=== PATIENT | male | born 1965 | race Caucasian/White ===

== ENCOUNTER 2017-10-04 02:52 | Emergency (ER) | payer OTHER ==
[~2017-10-04] VITALS: Ht 170.2 cm; Wt 95.0 kg
[~2017-10-04 02:52] MED LIST: ACET325T33 PO; CEPH500C PO; DOCU-159 PO; FENO160T13 PO; LACTINEX PO; LEVO750T8 PO; METO-448 PO; WARF4TAB52 PO
[2017-10-04 02:58] VITALS: Ht 170.2 cm; Wt 95.0 kg
[2017-10-04] MEDS ORDERED: morphine 2 MG INJ IV ONE (04:30)
[2017-10-04 04:44] LABS: BASOPHILS % 0.3 % (0.0-2.0); EOSINOPHILS # 0.1 10^3/ul (0.0-0.5); EOSINOPHILS % 1.4 % (0.0-7.0); HEMATOCRIT 43.4 % (42.0-52.0); LYMPHOCYTES # 2.2 10^3/ul (0.8-2.9); LYMPHOCYTES % 23.6 % (15.0-51.0); MEAN CORPUSCULAR HEMOGLOBIN 29.6 pg (29.0-33.0); MEAN CORPUSCULAR HGB CONC 34.6 g/dl (32.0-37.0); MEAN CORPUSCULAR VOLUME 85.8 fl (82.0-101.0); MONOCYTE # 0.5 10^3/ul (0.3-0.9); MONOCYTES % 5.4 % (0.0-11.0); NEUTROPHIL # 6.6 10^3/ul (1.6-7.5); PLATELET COUNT 206 10^3/UL (140-415); RED BLOOD COUNT 5.06 10^6/ul (4.70-6.10); RED CELL DISTRIBUTION WIDTH 13.2 % (11.5-14.5); WHITE BLOOD COUNT 9.5 10^3/ul (4.8-10.8)
[2017-10-04] MEDS ORDERED: morphine 10 MG INJ IV ONE (05:00)
[2017-10-04 05:02] LABS: INR 1.03; PROTIME 13.5 Sec (12.2-14.2); PT RATIO 1.1
[2017-10-04 05:03] LABS: PARTIAL THROMBOPLASTIN TIME 44.4 Sec (25.0-35.0)
[2017-10-04 05:08] LABS: ALBUMIN 4.4 g/dl (3.3-4.9); ALBUMIN/GLOBULIN RATIO 1.15; BILIRUBIN,INDIRECT 1.1 mg/dl (0-1.1); BILIRUBIN,TOTAL 1.1 mg/dl (0.2-1.3); CALCIUM 9.4 mg/dl (8.4-10.2); CREATININE 0.99 mg/dl (0.61-1.24); POTASSIUM 3.9 mmol/L (3.5-5.1); TOTAL PROTEIN 8.2 g/dl (6.1-8.1)
[2017-10-04] MEDS ORDERED: LIDOCAINE 2% JELLY 5 ML TOP SCH (05:30)
[2017-10-04] MEDS ORDERED: HYDROmorphONE 1 MG/ML SYG IV STA ×2 (06:21→13:10)
[2017-10-04] MEDS ORDERED: ONDANSETRON 4 MG INJ IV STA ×2 (06:21→13:10)
--- NOTE | 2017-10-04 06:28 | ERD ---
ER Documentation Chief Complaint Chief Complaint Rectal Bleed S/P hemorrhoids repair HPI This is a 52-year-old male who is postop day 4 after hemorrhoidectomy 2 with fistula repair. Patient is on Coumadin and Lovenox for mechanical heart valve that was stopped and restarted on Thursday, 2 days ago. The patient states that last night he started having some rectal bleeding and pain that he says is a sharp sensation and feels like it is "inside". No fever no vomiting. The patient is having bowel movements. Last bowel movement was yesterday that was loose. No abdominal pain no radiation of pain. ROS All systems reviewed and are negative except as per history of present illness. Medications Home Meds Active Scripts Lactobacillus Acidophilus* (Lactinex*) 1 Tab Chew, 1 TAB PO TID for 14 Days, TAB Prov:NOHEMI,NAnushaKULDEEPGUI Antonia 06/14/16 Cephalexin* (Cephalexin*) 500 Mg Capsule, 500 MG PO Q6 for 8 Days, #28 CAP Prov:NOHEMI,NAnushaKULDEEPGUI Antonia 06/14/16 Levofloxacin* (Levofloxacin*) 750 Mg Tablet, 750 MG PO DAILY for 8 Days, TAB Prov:NOHEMI,NAnushaKULDEEPGUI Antonia 06/14/16 Warfarin Sodium* (Warfarin Sodium*) 4 Mg Tablet, 5 MG PO DAILY for 30 Days, TAB Prov:NOHEMI,BreeKULDEEPGUI Knight 06/14/16 Acetaminophen* (Tylenol*) 325 Mg Tablet, 650 MG PO Q4H Y for pain/fever, #30 TAB OTC Prov:NOHEMIBreeKULDEEPGUI Knight 06/01/16 Metoprolol Tartrate* (Lopressor*) 25 Mg Tab, 25 MG PO BID for 30 Days, TAB 3 Refills Prov:Bree SONGKULDEEPGUI Knight 06/29/15 Reported Medications Fenofibrate, Micronized* (Fenofibrate*) 160 Mg Tablet, 160 MG PO DAILY, #90 06/10/16 Docusate Sodium* (Docusate Sodium*) 100 Mg Capsule, 100 MG PO BID, #60 CAP 06/10/16 Allergies Allergies: Coded Allergies: No Known Allergy (Unverified , 05/30/16) PMhx/Soc History of Surgery: Yes (Mitral valve replacement, appendectomy, hemorrhoidectomy) Anesthesia Reaction: No 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 ) Hx Alcohol Use: No Hx Substance Use: No Hx Tobacco Use: No Smoking Status: Never smoker FmHx Family History: No coronary disease Physical Exam Vitals Vital Signs Date Time Temp Pulse Resp B/P Pulse Ox O2 Delivery O2 Flow Rate FiO2 10/04/17 14:19 98.3 68 18 110/78 97 Room Air 10/04/17 11:00 99.0 70 18 112/72 97 Room Air 10/04/17 09:32 99.0 62 18 116/72 97 Room Air 10/04/17 04:52 98.4 72 20 144/86 99 Room Air 10/04/17 02:58 98.4 89 24 144/80 99 Physical Exam Const: Well-developed, well-nourished Head: Atraumatic, normocephalic Eyes: Normal Conjunctiva, PERRLA, EOMI, normal sclera, no nystagmus ENT: Normal External Ears, Nose and Mouth, moist mucus membranes. Neck: Full range of motion. No meningismus, no lymphadenopathy. Resp: Clear to auscultation bilaterally, no wheezing, rhonchi, rales Cardio: Regular rate and rhythm, no murmurs, positive click, S1 S2 present Abd: Soft, non tender x 4, non distended. Normal bowel sounds, no guarding or rebound, no pulsitile abdominal masses or bruits Rectal: No gross induration or signs of abscess there is coagulated blood around his surgical repair with no active bleeding, there is tenderness around the anus Skin: No petechiae or rashes, no ecchymosis , no maculopapular rash Back: No midline or flank tenderness Ext: No cyanosis, or edema, FROM x 4, normal inspection, neurovascularly intact x 4 Neur: Awake and alert, STR 5/5 x 4, sensation intact x 4, no focal findings, cerebellum intact Psych: Normal Mood and Affect Result Diagram: 10/04/17 1200 10/04/17 0435 Results 24 hrs Laboratory Tests Test 10/04/17 04:35 10/04/17 12:00 White Blood Count 9.510^3/ul Red Blood Count 5.0610^6/ul Hemoglobin 15.0g/dl 13.9g/dl Hematocrit 43.4% 39.5% Mean Corpuscular Volume 85.8fl Mean Corpuscular Hemoglobin 29.6pg Mean Corpuscular Hemoglobin Concent 34.6g/dl Red Cell Distribution Width 13.2% Platelet Count 14007^3/UL Mean Platelet Volume 11.0fl Neutrophils % 69.0% Lymphocytes % 23.6% Monocytes % 5.4% Eosinophils % 1.4% Basophils % 0.3% Nucleated Red Blood Cells % 0.0/100WBC Neutrophils # 6.610^3/ul Lymphocytes # 2.210^3/ul Monocytes # 0.510^3/ul Eosinophils # 0.110^3/ul Basophils # 0.010^3/ul Nucleated Red Blood Cells # 0.010^3/ul Prothrombin Time 13.5Sec Prothrombin Time Ratio 1.1 INR International Normalized Ratio 1.03 Activated Partial Thromboplast Time 44.4Sec Sodium Level 142mmol/L Potassium Level 3.9mmol/L Chloride Level 103mmol/L Carbon Dioxide Level 28mmol/L Anion Gap 15 Blood Urea Nitrogen 10mg/dl Creatinine 0.99mg/dl Glucose Level 103mg/dl Calcium Level 9.4mg/dl Total Bilirubin 1.1mg/dl Direct Bilirubin 0.00mg/dl Indirect Bilirubin 1.1mg/dl Aspartate Amino Transf (AST/SGOT) 30IU/L Alanine Aminotransferase (ALT/SGPT) 47IU/L Alkaline Phosphatase 68IU/L Total Protein 8.2g/dl Albumin 4.4g/dl Globulin 3.80g/dl Albumin/Globulin Ratio 1.15 Current Medications Medications (Trade) Dose Ordered Sig/Janee Route PRN Reason Start Time Stop Time Status Last Admin Dose Admin Morphine Sulfate (morphine) 2 mg ONCE ONCE IV 10/04/17 04:30 10/04/17 04:30 DC Lidocaine (Xylocaine) 1 applic BID TOP 10/04/17 09:00 Morphine Sulfate (morphine) 8 mg ONCE ONCE IV 10/04/17 05:00 10/04/17 05:01 DC 10/04/17 05:04 Lidocaine (Xylocaine 2% Jelly) 1 applic ONCE TOP 10/04/17 05:30 10/04/17 05:31 DC 10/04/17 05:30 Hydromorphone HCl (Dilaudid) 1 mg ONCE STAT IV 10/04/17 06:21 10/04/17 06:23 DC 10/04/17 06:51 Ondansetron HCl (Zofran Inj) 4 mg ONCE STAT IV 10/04/17 06:21 10/04/17 06:23 DC 10/04/17 06:51 Iohexol 150 ml 150 ml STK-MED ONCE .ROUTE 10/04/17 08:13 10/04/17 08:14 DC 10/04/17 08:30 Sodium Chloride (NS) 100 ml @ ud STK-MED ONCE .ROUTE 10/04/17 08:14 10/04/17 08:15 DC 10/04/17 08:30 Hydromorphone HCl (Dilaudid) 1 mg ONCE STAT IV 10/04/17 13:10 10/04/17 13:11 DC 10/04/17 13:25 Ondansetron HCl (Zofran Inj) 4 mg ONCE STAT IV 10/04/17 13:10 10/04/17 13:11 DC 10/04/17 13:25 Procedures/MDM PROCEDURE: ABDOMINAL - 5 VIEWS CLINICAL INDICATION: 52-year-old male with abdominal pain and recent hemorrhage surgery. TECHNIQUE: AP supine and upright views of the abdomen were obtained. The images reviewed on a PACS workstation. COMPARISON: CT ABDOMEN/PELVIS 06/10/2016; CR CHEST 06/10/2016 FINDINGS: The patient has had a prior median sternotomy. The cardiomediastinal silhouette is enlarged. There is a mitral valvular prosthesis. The lung bases are unremarkable. There is no free air beneath the hemidiaphragms. There is mild retained stool throughout the colon without an obstructive pattern. There are no abnormal calcifications overlying the urinary tracts. The osseous structures are unremarkable. IMPRESSION: 1. Status post median sternotomy. 2. Cardiomegaly with mitral valvular prosthesis. 3. Retained stool without gross bowel obstruction. .August Markham MD, Date Time Electronically viewed and signed by .August Markham MD, MD on 10/04/2017 06:51 .M/ CC: АНДРЕЙ BRYAN DO PROCEDURE: CT pelvis CLINICAL INDICATION: Status post hemorrhoidectomy. Bleeding. Postop day #4. TECHNIQUE: A CT of the pelvis was performed on a GE 64-slice CT scanner utilizing high-resolution axial imaging. Sagittal, coronal, multiplanar reformatted images were made. No oral or IV contrast was given. Soft tissue and bone algorithms were utilized. One or more the following dose reduction techniques were utilized: Automated exposure control, adjustment of the mA/ or kV according to patient's size, or use of iterative reconstruction technique. DICOM images are available for review. The CTDIvol is 15.6 mGy and the DLP is 708.0 mGy-cm. COMPARISON: CT abdomen and pelvis 06/10/2016. FINDINGS: There is evidence of mild soft tissue edema and minimal fluid and subcutaneous air in the periatrial region, particularly on the left. This presumably reflects postoperative change. The rectum and distal colon appear grossly unremarkable. Postsurgical changes from a prior appendectomy are identified. The previously seen stranding and fluid has resolved. There is no free air or free fluid within the pelvis. The sacrum and coccyx are normal in appearance. IMPRESSION: 1. Postsurgical changes are seen in the perianal region as described above. 2. There is no evidence of free fluid or free air identified within the pelvis. The visualized bowels grossly unremarkable other than postsurgical changes from a prior appendectomy. RPTAT: HJAH .Marsha Elizabeth MD, MD Date Time Electronically viewed and signed by .Marsha Elizabeth MD, on 10/04/2017 08:59 .H/ CC: LEVI NICHOLS DO Spoke with the patient's surgeon, Dr. barbour, patient had their wound packed but it bled through. At that point repeat his hemoglobin which came back at 13.9. On wound check again the patient's bleeding has stopped he only soaked through about a quarter of a pack of 4 x 4's. I discussed the case again with the patient's surgeon. The patient will be discharged home and is instructed to lay on his side and will follow up with the surgeon tomorrow. Warning signs to return were given. The patient was observed in the ER for 10 hours Departure Diagnosis: Primary Impression: Post-op bleeding Surgical complication system/body Area: circulatory system Procedure type: circulatory, unspecified Qualified Code: I97.618 - Postoperative hemorrhage involving circulatory system following circulatory system procedure Condition: Stable LEVI NICHOLS DO Oct 04, 2017 06:28
--- NOTE | 2017-10-04 06:51 | RADRPT ---
PROCEDURE: ABDOMINAL - 5 VIEWS CLINICAL INDICATION: 52-year-old male with abdominal pain and recent hemorrhage surgery. TECHNIQUE: AP supine and upright views of the abdomen were obtained. The images reviewed on a [employer] workstation. COMPARISON: CT ABDOMEN/PELVIS 06/10/2016; CR CHEST 06/10/2016 FINDINGS: The patient has had a prior median sternotomy. The cardiomediastinal silhouette is enlarged. There i s a mitral valvular prosthesis. The lung bases are unremarkable. There is no free air beneath the h emidiaphragms. There is mild retained stool throughout the colon without an obstructive pattern. The re are no abnormal calcifications overlying the urinary tracts. The osseous structures are unremarka ble. IMPRESSION: 1. Status post median sternotomy. 2. Cardiomegaly with mitral valvular prosthesis. 3. Retained stool without gross bowel obstruction. .August Markham MD, Date Time Electronically viewed and signed by .August Markham MD, on 10/04/2017 06:51 .Momo/
[2017-10-04] MEDS ORDERED: IOHEXOL 300MG/ML 150 ML BTL ONE (08:13)
[2017-10-04] MEDS ORDERED: SOD CHLORIDE 0.9% 100 ML ONE (08:14)
--- NOTE | 2017-10-04 08:59 | RADRPT ---
PROCEDURE: CT pelvis CLINICAL INDICATION: Status post hemorrhoidectomy. Bleeding. Postop day #4. TECHNIQUE: A CT of the pelvis was performed on a GE 64-slice CT scanner utilizing high-resolution axial imaging. Sagittal, coronal, multiplanar reformatted images were made. No oral or IV contrast was given. Soft tissue and bone algorithms were utilized. One or more the following dose reduction techniques were utilized: Automated exposure control, adjustment of the mA/ or kV according to chang ent's size, or use of iterative reconstruction technique. DICOM images are available for review. The CTDIvol is 15.6 mGy and the DLP is 708.0 mGy-cm. COMPARISON: CT abdomen and pelvis 06/10/2016. FINDINGS: There is evidence of mild soft tissue edema and minimal fluid and subcutaneous air in the periatrial region, particularly on the left. This presumably reflects postoperative change. The rectum and dis arcadio colon appear grossly unremarkable. Postsurgical changes from a prior appendectomy are identified . The previously seen stranding and fluid has resolved. There is no free air or free fluid within th e pelvis. The sacrum and coccyx are normal in appearance. IMPRESSION: 1. Postsurgical changes are seen in the perianal region as described above. 2. There is no evidence of free fluid or free air identified within the pelvis. The visualized jael ls grossly unremarkable other than postsurgical changes from a prior appendectomy. RPTAT: HJAH .Marsha Elizabeth MD, Date Time Electronically viewed and signed by .Marsha Elizabeth MD, on 10/04/2017 08:59 .H/
[2017-10-04] MEDS ORDERED: LIDOCAINE 2% JELLY 30 ML TOP SCH (09:00)
[2017-10-04 12:55] LABS: HEMATOCRIT 39.5 % (42.0-52.0); HEMOGLOBIN 13.9 g/dl (14.0-18.0)
[2017-10-04 14:55] VITALS: BP 112/68; PULSE 68; RESP 18; TEMP 97.9
== END 2017-10-04 15:12 | disposition home or self-care (01) ==
LOC: FTE 02:52 → E/R 15:12
DX: I97.618 Postprocedural hemorrhage of a circulatory system organ or structure following other circulatory system procedure (principal); Z79.01 Long term (current) use of anticoagulants
CPT/HCPCS: 36415; 72193; 74010; 80053; 85014; 85018; 85025; 85610; 85730; 86850; 86900; 86901; 96374; 96375; 96376; 99285; J1170; J2270; J2405; Q9967

== ENCOUNTER 2017-10-11 06:54 | Inpatient (IN) | payer OTHER ==
[~2017-10-11] VITALS: Ht 172.7 cm; Wt 98.0 kg
[2017-10-11 06:56] VITALS: Ht 172.7 cm; Wt 98.0 kg
[2017-10-11] MEDS ORDERED: ONDANSETRON 4 MG INJ IV STA (07:25)
[2017-10-11] MEDS ORDERED: morphine 4 MG/ML VIAL IV STA (07:25)
[2017-10-11 07:48] LABS: BASOPHILS % 0.4 % (0.0-2.0); EOSINOPHILS # 0.2 10^3/ul (0.0-0.5); EOSINOPHILS % 1.9 % (0.0-7.0); HEMATOCRIT 36.9 % (42.0-52.0); HEMOGLOBIN 12.8 g/dl (14.0-18.0); LYMPHOCYTES # 2.8 10^3/ul (0.8-2.9); LYMPHOCYTES % 36.1 % (15.0-51.0); MEAN CORPUSCULAR HGB CONC 34.7 g/dl (32.0-37.0); MEAN CORPUSCULAR VOLUME 86.4 fl (82.0-101.0); MEAN PLATELET VOLUME 10.8 fl (7.4-10.4); MONOCYTE # 0.4 10^3/ul (0.3-0.9); MONOCYTES % 5.7 % (0.0-11.0); NEUTROPHIL # 4.3 10^3/ul (1.6-7.5); NEUTROPHILS % 55.4 % (39.0-77.0); PLATELET COUNT 251 10^3/UL (140-415); RED BLOOD COUNT 4.27 10^6/ul (4.70-6.10); RED CELL DISTRIBUTION WIDTH 13.3 % (11.5-14.5); WHITE BLOOD COUNT 7.8 10^3/ul (4.8-10.8)
--- NOTE | 2017-10-11 07:49 | RADRPT ---
PROCEDURE: CHEST - 1 VIEW CLINICAL INDICATION: 52-year-old male with chest/abdominal pain. TECHNIQUE: A single frontal AP semi-supine portably view of the chest was performed. The images w ere reviewed on a PACS workstation. COMPARISON: CR CHEST 06/10/2016; CR CHEST 05/30/2016; CR CHEST 06/27/2015 FINDINGS: The patient has had a prior median sternotomy. There is a shallow inspiration accentuating the heart size. Accounting for this, the cardiomediastinal silhouette is prominent but without significant in terval change. A mitral valvular prosthesis is again noted. There is minimal bibasilar subsegmental atelectasis. There is no evidence for an infiltrate. There is no evidence for congestive heart sharona lure. There is no evidence for pneumothorax. IMPRESSION: 1. Status post median sternotomy. 2. Mitral valvular prosthesis. 3. Shallow inspiration. 4. Minimal bibasilar subsegmental atelectasis. .August Markham MD, MD Date Time Electronically viewed and signed by .August Markham MD, on 10/11/2017 07:49 .M/
[2017-10-11] MEDS ORDERED: PHYTONADIONE 10 MG/ML INJ SC ONE (08:00)
[2017-10-11 08:16] LABS: INR 2.33; PROTIME 25.8 Sec (12.2-14.2)
[2017-10-11 08:17] LABS: PARTIAL THROMBOPLASTIN TIME 51.7 Sec (25.0-35.0)
[2017-10-11 08:18] LABS: ALANINE AMINOTRANSFERASE 46 IU/L (13-69); ALBUMIN 3.7 g/dl (3.3-4.9); ALBUMIN/GLOBULIN RATIO 1.12; ALKALINE PHOSPHATASE 55 IU/L (42-121); ANION GAP 12 (8-16); ASPARTATE AMINO TRANSFERASE 23 IU/L (15-46); BILIRUBIN,INDIRECT 0.5 mg/dl (0-1.1); BILIRUBIN,TOTAL 0.5 mg/dl (0.2-1.3); BLOOD UREA NITROGEN 14 mg/dl (7-20); CARBON DIOXIDE 27 mmol/L (21-31); CHLORIDE 107 mmol/L (97-110); CREATININE 0.96 mg/dl (0.61-1.24); GLUCOSE 105 mg/dl (70-220); POTASSIUM 4.2 mmol/L (3.5-5.1); SODIUM 142 mmol/L (135-144)
[2017-10-11] MEDS ORDERED: ONDANSETRON 4 MG INJ IV PRN (08:30)
[2017-10-11] MEDS ORDERED: ACETAMINOPHEN 325 MG TAB PO PRN (08:30)
[2017-10-11 08:38] LABS: TROPONIN-I < 0.012 ng/ml (0.00-0.12)
--- NOTE | 2017-10-11 09:51 | ERD ---
ER Documentation Chief Complaint Chief Complaint rectal pain and bleeing - had a hemorrhoidectomy on Sep 30 HPI Patient is a 52-year-old male who has a mechanical heart valve who presents for rectal bleeding. The patient had a hemorrhoidectomy done on September 30. He started bleeding this morning at 2 AM from his rectum right with the surgery was done and he says "it was a lot of blood". He also has pain at the site. He is on Lovenox and Coumadin because of his mechanical valve. The surgeon who did the hemorrhoidectomy was Dr. Nielsen. ROS All systems reviewed and are negative except as per history of present illness. Medications Home Meds Active Scripts Lactobacillus Acidophilus* (Lactinex*) 1 Tab Chew, 1 TAB PO TID for 14 Days, TAB Prov:NOHEMITylerAnushaKULDEEPGUI 06/14/16 Cephalexin* (Cephalexin*) 500 Mg Capsule, 500 MG PO Q6 for 8 Days, #28 CAP Prov:NOHEMI,NAnushaKULDEEPGUI Knight 06/14/16 Levofloxacin* (Levofloxacin*) 750 Mg Tablet, 750 MG PO DAILY for 8 Days, TAB Prov:NOHEMI,NAnushaKULDEEPGUI 06/14/16 Warfarin Sodium* (Warfarin Sodium*) 4 Mg Tablet, 5 MG PO DAILY for 30 Days, TAB Prov:NOHEMI,BreeKULDEEPGUI 06/14/16 Acetaminophen* (Tylenol*) 325 Mg Tablet, 650 MG PO Q4H Y for pain/fever, #30 TAB OTC Prov:NOHEMI,BreeKULDEEPGUI Knight 06/01/16 Metoprolol Tartrate* (Lopressor*) 25 Mg Tab, 25 MG PO BID for 30 Days, TAB 3 Refills Prov:Bree SONGKULDEEPGUI Knight 06/29/15 Reported Medications Fenofibrate, Micronized* (Fenofibrate*) 160 Mg Tablet, 160 MG PO DAILY, #90 06/10/16 Docusate Sodium* (Docusate Sodium*) 100 Mg Capsule, 100 MG PO BID, #60 CAP 06/10/16 Allergies Allergies: Coded Allergies: No Known Allergy (Unverified , 05/30/16) PMhx/Soc Medical and Surgical Hx: pt denies Medical Hx, pt denies Surgical Hx History of Surgery: Yes (Mitral valve replacement, appendectomy, hemorrhoidectomy) Anesthesia Reaction: No 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 ) Hx Alcohol Use: No Hx Substance Use: No Hx Tobacco Use: No FmHx Family History: No diabetes Physical Exam Vitals Vital Signs Date Time Temp Pulse Resp B/P Pulse Ox O2 Delivery O2 Flow Rate FiO2 10/11/17 06:56 99.9 64 19 127/79 100 Physical Exam Const: Moderate distress Head: Atraumatic Eyes: Normal Conjunctiva ENT: Normal External Ears, Nose and Mouth. Neck: Full range of motion..~ No meningismus. Resp: Clear to auscultation bilaterally Cardio: Regular rate and rhythm, no murmurs Abd: Soft, non tender, non distended. Normal bowel sounds Skin: No petechiae or rashes Back: No midline or flank tenderness Ext: No cyanosis, or edema Neur: Awake and alert Rectal: Patient has active bleeding currently at the hemorrhoidectomy site, there is no sign of arterial bleed at this time Result Diagram: 10/11/17 0729 10/11/17 0729 Results 24 hrs Laboratory Tests Test 10/11/17 07:29 White Blood Count 7.810^3/ul Red Blood Count 4.2710^6/ul Hemoglobin 12.8g/dl Hematocrit 36.9% Mean Corpuscular Volume 86.4fl Mean Corpuscular Hemoglobin 30.0pg Mean Corpuscular Hemoglobin Concent 34.7g/dl Red Cell Distribution Width 13.3% Platelet Count 56892^3/UL Mean Platelet Volume 10.8fl Neutrophils % 55.4% Lymphocytes % 36.1% Monocytes % 5.7% Eosinophils % 1.9% Basophils % 0.4% Nucleated Red Blood Cells % 0.0/100WBC Neutrophils # 4.310^3/ul Lymphocytes # 2.810^3/ul Monocytes # 0.410^3/ul Eosinophils # 0.210^3/ul Basophils # 0.010^3/ul Nucleated Red Blood Cells # 0.010^3/ul Prothrombin Time 25.8Sec Prothrombin Time Ratio 2.0 INR International Normalized Ratio 2.33 Activated Partial Thromboplast Time 51.7Sec Sodium Level 142mmol/L Potassium Level 4.2mmol/L Chloride Level 107mmol/L Carbon Dioxide Level 27mmol/L Anion Gap 12 Blood Urea Nitrogen 14mg/dl Creatinine 0.96mg/dl Glucose Level 105mg/dl Calcium Level 9.0mg/dl Total Bilirubin 0.5mg/dl Direct Bilirubin 0.00mg/dl Indirect Bilirubin 0.5mg/dl Aspartate Amino Transf (AST/SGOT) 23IU/L Alanine Aminotransferase (ALT/SGPT) 46IU/L Alkaline Phosphatase 55IU/L Troponin I < 0.012ng/ml Total Protein 7.0g/dl Albumin 3.7g/dl Globulin 3.30g/dl Albumin/Globulin Ratio 1.12 Lipase 82U/L Current Medications Medications (Trade) Dose Ordered Sig/Janee Route PRN Reason Start Time Stop Time Status Last Admin Dose Admin Morphine Sulfate (morphine) 4 mg ONCE STAT IV 10/11/17 07:25 10/11/17 07:26 DC 10/11/17 07:35 Ondansetron HCl (Zofran Inj) 4 mg ONCE STAT IV 10/11/17 07:25 10/11/17 07:26 DC 10/11/17 07:35 Phytonadione (Vitamin K) 10 mg ONCE ONCE SC 10/11/17 08:00 10/11/17 08:01 DC 10/11/17 08:34 Ondansetron HCl (Zofran Inj) 4 mg BRIDGE ORDER PRN IV NAUSEA AND/OR VOMITING 10/11/17 08:30 10/12/17 08:29 Acetaminophen (Tylenol Tab) 650 mg ER BRIDGE PRN PO MILD PAIN/FEVER 10/11/17 08:30 10/12/17 08:29 Procedures/MDM PROCEDURE: CHEST - 1 VIEW CLINICAL INDICATION: 52-year-old male with chest/abdominal pain. TECHNIQUE: A single frontal AP semi-supine portably view of the chest was performed. The images were reviewed on a PACS workstation. COMPARISON: CR CHEST 06/10/2016; CR CHEST 05/30/2016; CR CHEST 06/27/2015 FINDINGS: The patient has had a prior median sternotomy. There is a shallow inspiration accentuating the heart size. Accounting for this, the cardiomediastinal silhouette is prominent but without significant interval change. A mitral valvular prosthesis is again noted. There is minimal bibasilar subsegmental atelectasis. There is no evidence for an infiltrate. There is no evidence for congestive heart failure. There is no evidence for pneumothorax. IMPRESSION: 1. Status post median sternotomy. 2. Mitral valvular prosthesis. 3. Shallow inspiration. 4. Minimal bibasilar subsegmental atelectasis. .August Markham MD, Date Time Electronically viewed and signed by .August Markham MD, on 10/11/2017 07:49 EKG read by me: Rate/Rhythm: Regular rate and rhythm at a rate of 86 Intervals: Prolonged QT interval Impression: Sinus rhythm with a prolonged QTC Patient is a 52-year-old male who presents with rectal bleeding from a hemorrhoidectomy site. I am concerned because the patient is on both Lovenox and Coumadin given his mechanical heart valve. Weighing the risks and benefits I believe that we need to stop this bleeding so Surgicel was applied to the site and the patient was ordered vitamin K and 4 units of fresh frozen plasma. I spoke with Dr. Jacob Sandra the surgeon on-call who will see the patient in consultation. The surgeon who performed the procedure does not have [facility] here at the hospital but I did speak to him to inform him that his patient was going to be admitted and with the treatment course would be. I spoke with Dr. Rodriguez who is the [facility] hospitalist for admission to a medical [facility]. Hemoglobin is currently 12.8 showing anemia but does not require transfusion at this time. However the patient will likely need hemoglobin recheck. Critical Care: Time: 35 minutes excluding all billable procedures. Treatments/Evaluations: Close monitoring and treatment of unstable vital signs, cardiorespiratory, and neurologic status, while maintaining tight balance of fluid, respiratory, and cardiac interventions. Departure Diagnosis: Primary Impression: Coagulopathy Additional Impression: Rectal hemorrhage Condition: MITESH Castillo MD Oct 11, 2017 09:51
[2017-10-11] MEDS ORDERED: WARF6TAB35 PO (10:06)
[2017-10-11] MEDS ORDERED: ENOX100D2 SC (10:07)
[2017-10-11 10:43] VITALS: TEMP 98.3
[2017-10-11 10:53] VITALS: BMI 33.5
--- NOTE | 2017-10-11 11:44 | HP ---
Date/Time of Note Date/Time of Note DATE: 10/11/17 TIME: 11:35 Assessment/Plan VTE Prophylaxis VTE Prophylaxis Intervention: SCD's Lines/Catheters IV [facility] Saline Lock Urinary Cath still in place: No Assessment/Plan Assessment/Plan [facility] 52yo man who is s/p mitral valve replacement on Coumadin. His said that she gives him Lovenox SQ if his INR falls below 2.0, and that it was most recently 2.7. Very healthy apart from the hemorrhoids that were operated two weeks ago. * Hold Coumadin and Lovenox for now * Surgery consult with Dr. Spencer Sandra * Consult with Dr. Jean-Paul Bell (cardiology) * NPO for possible surgical intervention today * D5-1/2NS at 100cc/hr * Full-code * SCDs for DVT prophylaxis * Famotidine for GI protection * Disposition home when bleeding is adequately controlled * Cardiology follow-up Courtney Rodriguez MD PhD [phone] HPI/ROS Admit Date/Time Admit Date/Time Oct 11, 2017 at 08:03 Hx of Present Illness Mr. Drew is a 52-year-old patient of Dr. Pasha Weiss with a history of a mechanical mitral valve who presented this morning for rectal bleeding two weeks (09/30/17) after hemorrhoidectomy at the [facility] by Dr. Dinesh Nielsen. I spoke with him and his in [place] in [facility] Rm 2256 this morning. He developed substantial rectal bleeding this morning about 2: 00am. He said it was only painful when examined. He takes Lovenox and Coumadin because of the mechanical valve, and is followed for cardiology by Dr. Durán. Dr. Nielsen was contacted by the ER staff this morning and indicated that he does not have privileges at [facility]. ROS No dyspnea, chest discomfort, dizziness, loose stooling or constipation. PMH/Family/Social Past Surgical History Past Surgical Hx: appendectomy, other (Mitral valve replacement) Social History He is and works in construction. Exam/Review of Systems Vital Signs Vitals Vital Signs Date Time Temp Pulse Resp B/P Pulse Ox O2 Delivery O2 Flow Rate FiO2 10/11/17 10:43 98.3 86 20 136/74 98 Room Air Exam Constitutional: alert, oriented, well developed Psych: anxiety, nl mood/affect, no complaints Head: atraumatic, normocephalic Eyes: EOMI, PERRL, nl conjunctiva ENMT: mucosa pink and moist Neck: non-tender, supple, No jvd, No masses, No nuchal rigidity, No thyromegaly Respiratory: clear to auscultation, normal air movement, No congested cough, No crackles/rales, No diminished breath sounds, No intercostal retraction, No labored breathing, No respirations, No wheezing Cardiovascular: murmurs/extra sounds, nl pulses, regular rate and rhythm, No bruits, No diastolic murmur, No edema, No gallop, No irregular rhythm, No jugular venous distention (JVD), No rub Gastrointestinal: bowel sounds, nl liver, spleen, non-tender, soft, surgical scars, No ascites, No distended, No firm, No hepatomegaly, No mass, No rebound or guarding, No splenomegaly, No tender Musculoskeletal: muscle tone, nl extremities to inspection, range of motion, No joint tenderness, No muscle weakness, No spine non-tender, No swelling Extremities: normal pulses Neurological: SURGICAL GARMENT INSPECTOR II-XII intact, nl mental status, nl speech, nl strength Skin: nl turgor, No diaphoresis, No ecchymosis, No laceration, No puncture, No rash or lesions Lymph: nl lymph nodes Labs Result Diagram: 10/11/17 0729 10/11/17 0729 TERESO RODRIGUEZ M.D. Oct 11, 2017 11:44
[2017-10-11 11:46] VITALS: BP 105/64; PULSE 51; RESP 18
[2017-10-11] MEDS ORDERED: ONDANSETRON 4 MG TAB PO PRN (12:00)
[2017-10-11] MEDS ORDERED: DOCUSATE SODIUM 100 MG CAP PO PRN (12:00)
[2017-10-11] MEDS ORDERED: NACL 0.9% 3 ML SYG IV SCH (12:00)
--- NOTE | 2017-10-11 13:41 | CONS ---
Date/Time of Note Date/Time of Note DATE: 10/11/17 TIME: 13:34 Assessment/Plan Assessment/Plan Chief Complaint/Hosp Course 1. hx mechanical mitral valve replacement 2. rectal bleeding 3/. History of hemorrhoids 4. Status post recent hemorrhoidectomy 5. Mild anemia Recommendations: We will check echocardiogram to evaluate for mitral valve. Lovenox and Coumadin are on hold until bleeding stops. Surgical evaluation is pending to evaluate for the hemorrhoid bleeding. I recommend avoidance of FFP however due to the patient's mechanical mitral valve to avoid thrombosis of the valve and possible CVAs and other complications. Follow-up with daily INR Dr. Durán or his associate will follow up tomorrow. THANK YOU MITCH MONROE MD [facility] Problems: Consultation Date/Type/Reason Admit Date/Time Oct 11, 2017 at 08:03 Date of Consultation: Oct 11, 2017 Type of Consultation: cardiology Reason for Consultation s/p MVR Referring Provider: TERESO SLOAN M.D. Hx of Present Illness CARDIOLOGY CONSULT (covering for Dr Durán) CC: RECTAL BLEEDING HPI: You for his referral. History of present from the patient with history of the old chart from discussion with his at discussion with . 52-year-old gentleman with history of mechanical mitral valve replacement in 2011 who has undergone hemorrhoid surgery a couple of weeks ago. Patient Coumadin and Lovenox was restarted. He has had repeated rectal bleeding. Patient states that he was seen here earlier and since of bleeding so he was discharged. However patient came back because of increasing rectal bleeding. According to the who was packing is that the bleeding was "significant" Patient is in chest pain the patient denies any palpitation. Allergies: No known drug allergies Past medical history history of mitral valve disorder status post mechanical mitral valve replacement in 2011. History of hemorrhoid as above-mentioned. Family history: No reported early coronary artery disease Medication was reviewed ROS as above only Psychological: anxiety, nl mood/affect, no complaints Past Surgical History Past Surgical Hx: appendectomy, other (Mitral valve replacement) Social History Smoking Status: Never smoker Exam/Review of Systems Vital Signs Vitals Vital Signs Date Time Temp Pulse Resp B/P Pulse Ox O2 Delivery O2 Flow Rate FiO2 10/11/17 11:46 98.3 51 18 105/64 98 Room Air Exam General: no acute distress HEENT: NC/AT. pupils are equal. round. NECK: NO JVD. no stridor. CV: RRR. systolic murmur; no gallop or rubs. PULM: no wheezing or rhonchi. GI: SOFT, NT, ND, no rebound or guarding Extremity: trace B/L LE edema. no clubbing. neuro: awake and alert, OX3. Psych: calm and pleasant rectal: deferred ECG sinus pradeep nonspecific T wave abn Results Result Diagram: 10/11/17 0729 10/11/17 0729 Results 24 hrs Laboratory Tests Test 10/11/17 07:29 White Blood Count 7.8 Red Blood Count 4.27 L Hemoglobin 12.8 L Hematocrit 36.9 L Mean Corpuscular Volume 86.4 Mean Corpuscular Hemoglobin 30.0 Mean Corpuscular Hemoglobin Concent 34.7 Red Cell Distribution Width 13.3 Platelet Count 251 # Mean Platelet Volume 10.8 H Neutrophils % 55.4 Lymphocytes % 36.1 Monocytes % 5.7 Eosinophils % 1.9 Basophils % 0.4 Nucleated Red Blood Cells % 0.0 Neutrophils # 4.3 Lymphocytes # 2.8 Monocytes # 0.4 Eosinophils # 0.2 Basophils # 0.0 Nucleated Red Blood Cells # 0.0 Prothrombin Time 25.8 #H Prothrombin Time Ratio 2.0 INR International Normalized Ratio 2.33 Activated Partial Thromboplast Time 51.7 H Sodium Level 142 Potassium Level 4.2 Chloride Level 107 Carbon Dioxide Level 27 Anion Gap 12 Blood Urea Nitrogen 14 Creatinine 0.96 Glucose Level 105 Calcium Level 9.0 Total Bilirubin 0.5 Direct Bilirubin 0.00 Indirect Bilirubin 0.5 Aspartate Amino Transf (AST/SGOT) 23 Alanine Aminotransferase (ALT/SGPT) 46 Alkaline Phosphatase 55 Troponin I < 0.012 Total Protein 7.0 Albumin 3.7 Globulin 3.30 H Albumin/Globulin Ratio 1.12 Lipase 82 Medications Medications Current Medications Dextrose/Sodium Chloride (D5-1/2ns) 1,000 ml @ 100 mls/hr Q10H IV ; Start at 11:57 Ondansetron HCl (Zofran Tab) 4 mg Q6H PRN PO NAUSEA AND/OR VOMITING; Start at 12:00 Docusate Sodium (Colace) 100 mg Q12H PRN PO CONSTIPATION; Start 11/19/17 at 12 :00 Famotidine (Pepcid) 20 mg Q12 PO ; Start 10/11/17 at 12:00 MITCH MONROE MD Oct 11, 2017 13:41
[2017-10-11 14:00] VITALS: BP 110/64; RESP 19
[2017-10-11] MEDS: FAMOTIDINE 20 MG TAB PO SCH ×2 (14:20→20:33)
[2017-10-11] MEDS: DEXTROSE 5%-0.45% NACL 1,000 ML IV SCH (14:21)
--- NOTE | 2017-10-11 19:03 | CONS ---
Date/Time of Note Date/Time of Note DATE: 10/11/17 TIME: 19:03 Consultation Date/Type/Reason Admit Date/Time Oct 11, 2017 at 08:03 Date of Consultation: Oct 11, 2017 Type of Consultation: General surgical Reason for Consultation Rectal bleeding with recent by Dr. Nielsen Anemia Antiplatelet therapy for mechanical mitral valve Referring Provider: MITESH ENGLE MD Hx of Present Illness Mr. Kev Drew is 52yo male with history of mechanical mitral valve replacement in 2011 and antiplatelet therapy who has undergone hemorrhoid surgery a couple of weeks ago by Dr Nielsen. Patient Coumadin and Lovenox was restarted. He has had repeated rectal bleeding. Patient states that he was seen here earlier and since of bleeding so he was discharged. However patient came back because of increasing rectal bleeding. According to the who was packing is that the bleeding was "significant" Patient is in chest pain the patient denies any palpitation. Allergies: No known drug allergies Past medical history history of mitral valve disorder status post mechanical mitral valve replacement in 2011. History of hemorrhoid as above-mentioned. Family history: No reported early coronary artery disease Medication was reviewed ROS as above only Psychological: anxiety, nl mood/affect, no complaints Past Surgical History Past Surgical Hx: appendectomy, other (Mitral valve replacement) Psychological: anxiety, nl mood/affect, no complaints Past Surgical History Past Surgical Hx: appendectomy, other (Mitral valve replacement) Social History Smoking Status: Never smoker Exam/Review of Systems Vital Signs Vitals Vital Signs Date Time Temp Pulse Resp B/P Pulse Ox O2 Delivery O2 Flow Rate FiO2 10/11/17 11:46 98.3 51 18 105/64 98 Room Air Results Result Diagram: 10/11/17 0729 10/11/17 0729 Results 24 hrs Laboratory Tests Test 10/11/17 07:29 White Blood Count 7.8 Red Blood Count 4.27 L Hemoglobin 12.8 L Hematocrit 36.9 L Mean Corpuscular Volume 86.4 Mean Corpuscular Hemoglobin 30.0 Mean Corpuscular Hemoglobin Concent 34.7 Red Cell Distribution Width 13.3 Platelet Count 251 # Mean Platelet Volume 10.8 H Neutrophils % 55.4 Lymphocytes % 36.1 Monocytes % 5.7 Eosinophils % 1.9 Basophils % 0.4 Nucleated Red Blood Cells % 0.0 Neutrophils # 4.3 Lymphocytes # 2.8 Monocytes # 0.4 Eosinophils # 0.2 Basophils # 0.0 Nucleated Red Blood Cells # 0.0 Prothrombin Time 25.8 #H Prothrombin Time Ratio 2.0 INR International Normalized Ratio 2.33 Activated Partial Thromboplast Time 51.7 H Sodium Level 142 Potassium Level 4.2 Chloride Level 107 Carbon Dioxide Level 27 Anion Gap 12 Blood Urea Nitrogen 14 Creatinine 0.96 Glucose Level 105 Calcium Level 9.0 Total Bilirubin 0.5 Direct Bilirubin 0.00 Indirect Bilirubin 0.5 Aspartate Amino Transf (AST/SGOT) 23 Alanine Aminotransferase (ALT/SGPT) 46 Alkaline Phosphatase 55 Troponin I < 0.012 Total Protein 7.0 Albumin 3.7 Globulin 3.30 H Albumin/Globulin Ratio 1.12 Lipase 82 Medications Medications Current Medications Dextrose/Sodium Chloride (D5-1/2ns) 1,000 ml @ 100 mls/hr Q10H IV Last administered on 10/11/17 14:21; Admin Dose 100 MLS/HR; Start 10/11/17 at 11: 57 Ondansetron HCl (Zofran Tab) 4 mg Q6H PRN PO NAUSEA AND/OR VOMITING; Start at 12:00 Docusate Sodium (Colace) 100 mg Q12H PRN PO CONSTIPATION; Start 10/11/17 at 12 :00 Famotidine (Pepcid) 20 mg Q12 PO Last administered on 10/11/17 14:20; Admin Dose 20 MG; Start 10/11/17 at 12:00 MONTY IRVIN MD Oct 11, 2017 19:03
[2017-10-11 20:32] VITALS: BP 108/67; RESP 18
[2017-10-12 02:19] VITALS: BP 109/68; RESP 20
[2017-10-12] MEDS: DEXTROSE 5%-0.45% NACL 1,000 ML IV SCH ×4 (02:47→22:54)
[2017-10-12 05:54] LABS: BASOPHILS % 0.6 % (0.0-2.0); EOSINOPHILS # 0.2 10^3/ul (0.0-0.5); EOSINOPHILS % 4.4 % (0.0-7.0); HEMATOCRIT 33.9 % (42.0-52.0); HEMOGLOBIN 11.6 g/dl (14.0-18.0); LYMPHOCYTES # 2.1 10^3/ul (0.8-2.9); LYMPHOCYTES % 42.2 % (15.0-51.0); MEAN CORPUSCULAR HEMOGLOBIN 30.1 pg (29.0-33.0); MEAN CORPUSCULAR HGB CONC 34.2 g/dl (32.0-37.0); MEAN CORPUSCULAR VOLUME 88.1 fl (82.0-101.0); MEAN PLATELET VOLUME 10.7 fl (7.4-10.4); MONOCYTE # 0.4 10^3/ul (0.3-0.9); NEUTROPHIL # 2.3 10^3/ul (1.6-7.5); NEUTROPHILS % 45.4 % (39.0-77.0); PLATELET COUNT 233 10^3/UL (140-415); RED BLOOD COUNT 3.85 10^6/ul (4.70-6.10); RED CELL DISTRIBUTION WIDTH 13.6 % (11.5-14.5)
[2017-10-12 06:14] LABS: INR 1.84; PROTIME 21.4 Sec (12.2-14.2); PT RATIO 1.7
[2017-10-12 06:47] LABS: CALCIUM 8.9 mg/dl (8.4-10.2); CREATININE 0.98 mg/dl (0.61-1.24); POTASSIUM 3.9 mmol/L (3.5-5.1)
[2017-10-12 07:20] VITALS: BP 111/65; RESP 16
[2017-10-12] MEDS: FAMOTIDINE 20 MG TAB PO SCH ×2 (08:49→20:38)
--- NOTE | 2017-10-12 13:32 | PN ---
Date/Time of Note Date/Time of Note DATE: 10/12/17 TIME: 13:31 Assessment/Plan VTE Prophylaxis VTE Prophylaxis Intervention: SCD's Lines/Catheters IV Catheter Type (from [facility]): Peripheral IV Urinary Cath still in place: No Assessment/Plan Assessment/Plan 1. hx mechanical mitral valve replacement 2. rectal bleeding 3/. History of hemorrhoids 4. Status post recent hemorrhoidectomy 5. Mild anemia Recommendation Lovenox and Coumadin are on hold until bleeding stops. Surgical evaluation is pending to evaluate for the hemorrhoid bleeding - seen by dr albright I recommend avoidance of FFP however due to the patient's mechanical mitral valve to avoid thrombosis of the valve and possible CVAs and other complications. hct slightly lower today Exam/Review of Systems Vital Signs Vitals Vital Signs Date Time Temp Pulse Resp B/P Pulse Ox O2 Delivery O2 Flow Rate FiO2 10/12/17 07:20 97.8 52 16 111/65 97 10/11/17 11:46 Room Air Intake and Output 10/11/17 10/11/17 10/12/17 15:00 23:00 07:00 Intake Total 300 ml 1050 ml Output Total 1250 ml Balance 300 ml -200 ml Results Result Diagram: 10/12/17 0458 10/12/17 0458 Results 24 hrs Laboratory Tests Test 10/12/17 04:58 White Blood Count 5.0 # Red Blood Count 3.85 L Hemoglobin 11.6 L Hematocrit 33.9 L Mean Corpuscular Volume 88.1 Mean Corpuscular Hemoglobin 30.1 Mean Corpuscular Hemoglobin Concent 34.2 Red Cell Distribution Width 13.6 Platelet Count 233 Mean Platelet Volume 10.7 H Neutrophils % 45.4 Lymphocytes % 42.2 Monocytes % 7.0 Eosinophils % 4.4 Basophils % 0.6 Nucleated Red Blood Cells % 0.0 Neutrophils # 2.3 Lymphocytes # 2.1 Monocytes # 0.4 Eosinophils # 0.2 Basophils # 0.0 Nucleated Red Blood Cells # 0.0 Prothrombin Time 21.4 H Prothrombin Time Ratio 1.7 INR International Normalized Ratio 1.84 Sodium Level 142 Potassium Level 3.9 Chloride Level 107 Carbon Dioxide Level 27 Anion Gap 12 Blood Urea Nitrogen 13 Creatinine 0.98 Glucose Level 105 Calcium Level 8.9 Medications Medications Current Medications Dextrose/Sodium Chloride (D5-1/2ns) 1,000 ml @ 100 mls/hr Q10H IV Last administered on 10/12/17 12:16; Admin Dose 100 MLS/HR; Start 10/11/17 at 11: 57 Ondansetron HCl (Zofran Tab) 4 mg Q6H PRN PO NAUSEA AND/OR VOMITING; Start at 12:00 Docusate Sodium (Colace) 100 mg Q12H PRN PO CONSTIPATION; Start 10/11/17 at 12 :00 Famotidine (Pepcid) 20 mg Q12 PO Last administered on 10/12/17 08:49; Admin Dose 20 MG; Start 10/11/17 at 12:00 SHADIA BRUMFIELD MD Oct 12, 2017 13:32
[2017-10-12 14:03] VITALS: BP 129/70; RESP 16
--- NOTE | 2017-10-12 14:55 | RADRPT ---
Echocardiogram Report Patient Name: SILVANO RUTHERFORD Gender: Male Date: 1965 Study Date: 12-Oct-2017 Rug Hooker Hand: Sergio Cooper [facility] Location: 2256-A Ref. Physician: MITCH BELL Quality: Adequate Procedures: Transthoracic echocardiogram with complete 2D, M-Mode, and doppler examination. Indications: S/P MVR. 2D/M Mode Doppler Measurement Value Normal Ranges Measurement Value Normal Ranges LVIDd 2D 5.2 3.5 - 5.6 cm AV Peak Sumit 1.5 m/sec LVIDs 2D 3.3 2.1 - 4.1 cm AV Peak PG 9.0 mmHg FS 2D 35.6 % LVOT Peak Sumit 1.0 m/sec LVPWd 2D 1.3 0.6 - 1.1 cm LVOT Peak PG 4.0 mmHg IVSd 2D 1.3 0.6 - 1.1 cm MV PHT 150.0 msec IVS/LVPW 2D 1.0 MV Peak Sumit 1.5 m/sec AoR Diam 2D 3.0 2.0 - 3.7 cm MV Peak PG 9.0 mmHg LA/Ao 2D 1 0 - 1 MV Mean Sumit 0.9 m/sec EDV 2D 138.0 cm3 MV Mean PG 4.0 mmHg ESV 2D 36.9 cm3 MV Decel [place] 3 LA Dimen 2D 4.3 2.3 - 4.0 cm MV PHT Peak Sumit 1.4 m/sec MV PHT 150.0 msec MV VTI 62.8 cm MVA PHT 1.5 cm2 TR Peak Sumit 2.7 m/sec TR Peak PG 29.0 mmHg RVSP 39.0 mmHg Findings Left Ventricle: Normal left ventricular systolic function. Normal left ventricular cavity size. Mild concentric left ventricular hypertrophy. Ejection fraction is visually estimated at 55 %. Right Ventricle: Normal right ventricular size. Normal right ventricular systolic function. Left Atrium: There is mild enlargement of left atrium. Right Atrium: The right atrium is normal in size. Mitral Valve: Trace mitral regurgitation. Mitral Valve Mechanical Prosthesis. Mitral valve Max Velocity 1.51 m/sec. MaxPG 9.00 mmHg. MeanPG 4.00 mmHg. Mitral Valve Area by PHT1.47 cm2. Aortic Valve: Normal appearance of the aortic valve. No significant aortic stenosis or insufficiency. Tricuspid Valve: Normal appearance of the tricuspid valve. Estimated peak PA systolic pressure 39 mmHg. There is mild tricuspid regurgitation. Pulmonic Valve: Pulmonic valve not well visualized. There is trace pulmonic regurgitation. Pericardium: Normal pericardium with no significant pericardial effusion. Aorta: Normal aortic root. IVC: Normal size and normal respiratory collapse consistent with normal right atrial pressure. Conclusions 1.Normal left ventricular systolic function. Normal left ventricular cavity size. Mild concentric left ventricular hypertrophy. Ejection fraction is visually estimated at 55 %. 2.There is mild enlargement of left atrium. 3.Trace mitral regurgitation. Mitral Valve Mechanical Prosthesis. Mitral valve Max Velocity 1.51 m/sec. MaxPG 9.00 mmHg. MeanPG 4.00 mmHg. Mitral Valve Area by PHT1.47 cm2. 4.Normal appearance of the aortic valve. No significant aortic stenosis or insufficiency. 5.Normal appearance of the tricuspid valve. Estimated peak PA systolic pressure 39 mmHg. There is mild tricuspid regurgitation. Electronically Signed By: Mitch Bell 12-Oct-2017 14:54:40 -0800 Patient Name: SILVANO RUTHERFORD Study Date: 12-Oct-2017 [id number]
--- NOTE | 2017-10-12 16:17 | PN ---
Date/Time of Note Date/Time of Note DATE: 10/12/17 TIME: 16:07 Assessment/Plan VTE Prophylaxis VTE Prophylaxis Intervention: SCD's Lines/Catheters IV Catheter Type (from [facility]): Peripheral IV Urinary Cath still in place: No Assessment/Plan Assessment/Plan 52 yo man with: 1. Rectal bleeding, status post and ano-rectal surgery 2 weeks ago, patient actually had a fistulotomy (he has had recurrent and rectal fistula with abscesses) and removal of 2 large external hemorrhoids on both sides of the fistula with the wounds left open to make sure that the fistula drains according to the he had a fistula and he required surgery, apparently there was an opening that was left for drainage of the pus according to the , unsure if he actually had a hemorrhoidectomy. Will attempt to get records from outpatient surgical center. Hemoglobin remains stable He is off anticoagulation currently for short-term. 2. Mechanical Mitral valve, patient was on Lovenox and Coumadin given his subtherapeutic INR. Ideally his INR should be between 2.5 and 3.5, apparently he received FFP. The patient cannot remain non-anticoagulated for too long. Appreciate recommendations from cardiology, awaiting surgical recommendations regarding resumption of his anticoagulation at least with Lovenox No FFP please Prophylaxis: SCDs for DVT prophylaxis and Pepcid for GI prophylaxis Disposition: Follow-up surgical recommendation, again attempting to get records from surgical center in [place]. Subjective 24 Hr Interval Summary Free Text/Dictation Patient doing well currently, apparently did have episode of rectal bleeding this morning however the patient reports that he has not had any bowel movements. Hemoglobin is stable, surgical evaluation pending. Appreciate recommendations from cardiology. Exam/Review of Systems Vital Signs Vitals Vital Signs Date Time Temp Pulse Resp B/P Pulse Ox O2 Delivery O2 Flow Rate FiO2 10/12/17 14:03 97.2 67 16 129/70 97 10/11/17 11:46 Room Air Intake and Output 10/11/17 10/11/17 10/12/17 15:00 23:00 07:00 Intake Total 300 ml 1050 ml Output Total 1250 ml Balance 300 ml -200 ml Exam Constitutional: alert, oriented, well developed Respiratory: clear to auscultation, normal air movement Cardiovascular: nl pulses, regular rate and rhythm Gastrointestinal: non-tender, soft Musculoskeletal: nl extremities to inspection, nl gait and stance Extremities: normal pulses Neurological: HARDWOOD FLOORING SPECIALIST II-XII intact, nl mental status, nl speech, nl strength Results Result Diagram: 10/12/178 10/12/178 Results 24 hrs Laboratory Tests Test 10/12/17 04:58 White Blood Count 5.0 # Red Blood Count 3.85 L Hemoglobin 11.6 L Hematocrit 33.9 L Mean Corpuscular Volume 88.1 Mean Corpuscular Hemoglobin 30.1 Mean Corpuscular Hemoglobin Concent 34.2 Red Cell Distribution Width 13.6 Platelet Count 233 Mean Platelet Volume 10.7 H Neutrophils % 45.4 Lymphocytes % 42.2 Monocytes % 7.0 Eosinophils % 4.4 Basophils % 0.6 Nucleated Red Blood Cells % 0.0 Neutrophils # 2.3 Lymphocytes # 2.1 Monocytes # 0.4 Eosinophils # 0.2 Basophils # 0.0 Nucleated Red Blood Cells # 0.0 Prothrombin Time 21.4 H Prothrombin Time Ratio 1.7 INR International Normalized Ratio 1.84 Sodium Level 142 Potassium Level 3.9 Chloride Level 107 Carbon Dioxide Level 27 Anion Gap 12 Blood Urea Nitrogen 13 Creatinine 0.98 Glucose Level 105 Calcium Level 8.9 Medications Medications Current Medications Dextrose/Sodium Chloride (D5-1/2ns) 1,000 ml @ 100 mls/hr Q10H IV Last administered on 10/12/17 12:16; Admin Dose 100 MLS/HR; Start 10/11/17 at 11: 57 Ondansetron HCl (Zofran Tab) 4 mg Q6H PRN PO NAUSEA AND/OR VOMITING; Start at 12:00 Docusate Sodium (Colace) 100 mg Q12H PRN PO CONSTIPATION; Start 10/11/17 at 12 :00 Famotidine (Pepcid) 20 mg Q12 PO Last administered on 10/12/17 08:49; Admin Dose 20 MG; Start 10/11/17 at 12:00 MIKKI SONG Oct 12, 2017 16:17
[2017-10-12] MEDS ORDERED: ACETAMINOPHEN 325 MG TAB PO PRN (16:30)
[2017-10-12 20:30] VITALS: BP 109/63; RESP 18
[2017-10-13 02:00] VITALS: BP 103/64; RESP 17
[2017-10-13 06:46] LABS: BASOPHILS % 0.4 % (0.0-2.0); EOSINOPHILS # 0.2 10^3/ul (0.0-0.5); EOSINOPHILS % 4.1 % (0.0-7.0); HEMATOCRIT 32.5 % (42.0-52.0); HEMOGLOBIN 11.3 g/dl (14.0-18.0); LYMPHOCYTES # 2.5 10^3/ul (0.8-2.9); LYMPHOCYTES % 46.1 % (15.0-51.0); MEAN CORPUSCULAR HEMOGLOBIN 30.1 pg (29.0-33.0); MEAN CORPUSCULAR HGB CONC 34.8 g/dl (32.0-37.0); MEAN CORPUSCULAR VOLUME 86.7 fl (82.0-101.0); MEAN PLATELET VOLUME 10.7 fl (7.4-10.4); MONOCYTE # 0.4 10^3/ul (0.3-0.9); MONOCYTES % 8.3 % (0.0-11.0); NEUTROPHIL # 2.2 10^3/ul (1.6-7.5); NEUTROPHILS % 40.7 % (39.0-77.0); PLATELET COUNT 239 10^3/UL (140-415); RED BLOOD COUNT 3.75 10^6/ul (4.70-6.10); RED CELL DISTRIBUTION WIDTH 13.2 % (11.5-14.5); WHITE BLOOD COUNT 5.3 10^3/ul (4.8-10.8)
[2017-10-13 07:20] LABS: INR 1.27; PT RATIO 1.3
[2017-10-13 07:21] LABS: PARTIAL THROMBOPLASTIN TIME 35.7 Sec (25.0-35.0)
[2017-10-13 07:30] LABS: ALBUMIN 3.5 g/dl (3.3-4.9); ALBUMIN/GLOBULIN RATIO 1.25; BILIRUBIN,INDIRECT 0.7 mg/dl (0-1.1); BILIRUBIN,TOTAL 0.7 mg/dl (0.2-1.3); CALCIUM 8.5 mg/dl (8.4-10.2); CREATININE 1.01 mg/dl (0.61-1.24); POTASSIUM 3.8 mmol/L (3.5-5.1); TOTAL PROTEIN 6.3 g/dl (6.1-8.1)
[2017-10-13 07:31] LABS: MAGNESIUM 2.1 mg/dl (1.7-2.5); PHOSPHORUS 4.3 mg/dl (2.5-4.9)
[2017-10-13 08:00] VITALS: BP 104/56; PULSE 67; RESP 18
[2017-10-13] MEDS: FAMOTIDINE 20 MG TAB PO SCH ×2 (10:12→20:22)
--- NOTE | 2017-10-13 10:25 | PN ---
Date/Time of Note Date/Time of Note DATE: 10/13/17 TIME: 10:25 Assessment/Plan VTE Prophylaxis VTE Prophylaxis Intervention: SCD's Lines/Catheters IV [facility]ter Type (from [facility]): Peripheral IV Urinary Cath still in place: No Assessment/Plan Assessment/Plan 52 yo man with: 1. Rectal bleeding, status post and ano-rectal surgery 2 weeks ago, patient actually had a fistulotomy (he has had recurrent and rectal fistula with abscesses) and removal of 2 large external hemorrhoids on both sides of the fistula with the wounds left open to make sure that the fistula drains per Dr Hinton. Hemoglobin remains stable this morning and no episodes of major bleeding. He is off anticoagulation currently for short-term. INR is down to 1.2 today. Will discuss with cardiology, however per Dr. Hinton can it would be ideal to have the patient off anticoagulation 2 more days prior to resuming it because he feels like by then the patient would have been +14 days postsurgery and healed enough that even with full anticoagulation resumed he should not have any severe bleeding 2. Mechanical Mitral valve, patient was on Lovenox and Coumadin given his subtherapeutic INR. Ideally his INR should be between 2.5 and 3.5, apparently he received FFP on admission. The patient cannot remain non-anticoagulated for too long but outpatient surgeon , Dr Hinton is asking for 2 more days of anticoagulation if possible to allow for healing therefore resumption of full dose anticoagulation by 10/16. Follow-up inpatient surgical recommendations form Dr Sandra. Follow-up recommendations from cardiology. No FFP please Prophylaxis: SCDs for DVT prophylaxis and Pepcid for GI prophylaxis Disposition: Follow-up further inpatient surgical and cardiology recommendation. Subjective 24 Hr Interval Summary Free Text/Dictation Patient doing well this morning, he denies any large bloody bowel movements, only trace blood, hemoglobin is stable. I did talk to Dr. Dinesh Hinton this morning, he did explain the procedure he had done with this patient which includes fistulotomy and hemorrhoidectomy at this point no plan for surgical intervention per Dr. Sandra, patient remains off anticoagulation. Exam/Review of Systems Vital Signs Vitals Vital Signs Date Time Temp Pulse Resp B/P Pulse Ox O2 Delivery O2 Flow Rate FiO2 10/13/17 08:00 98.2 67 18 104/56 99 Room Air Intake and Output 10/12/17 10/12/17 10/13/17 14:59 22:59 06:59 Intake Total 700 ml 1000 ml 800 ml Output Total 1100 ml Balance 700 ml -100 ml 800 ml Exam Constitutional: alert, oriented, well developed Respiratory: clear to auscultation, normal air movement Cardiovascular: murmurs/extra sounds (Mechanical click), nl pulses, regular rate and rhythm Gastrointestinal: non-tender, soft Musculoskeletal: nl extremities to inspection Extremities: normal pulses Neurological: COMPUTER SUPPORT TECHNICIAN II-XII intact, nl mental status, nl speech, nl strength Results Result Diagram: 10/13/1760110/13/17601 Results 24 hrs Laboratory Tests Test 10/13/17 06:02 White Blood Count 5.3 Red Blood Count 3.75 L Hemoglobin 11.3 L Hematocrit 32.5 L Mean Corpuscular Volume 86.7 Mean Corpuscular Hemoglobin 30.1 Mean Corpuscular Hemoglobin Concent 34.8 Red Cell Distribution Width 13.2 Platelet Count 239 Mean Platelet Volume 10.7 H Neutrophils % 40.7 Lymphocytes % 46.1 Monocytes % 8.3 Eosinophils % 4.1 Basophils % 0.4 Nucleated Red Blood Cells % 0.0 Neutrophils # 2.2 Lymphocytes # 2.5 Monocytes # 0.4 Eosinophils # 0.2 Basophils # 0.0 Nucleated Red Blood Cells # 0.0 Prothrombin Time 16.0 #H Prothrombin Time Ratio 1.3 INR International Normalized Ratio 1.27 Activated Partial Thromboplast Time 35.7 H Sodium Level 141 Potassium Level 3.8 Chloride Level 107 Carbon Dioxide Level 26 Anion Gap 12 Blood Urea Nitrogen 12 Creatinine 1.01 Glucose Level 99 Calcium Level 8.5 Phosphorus Level 4.3 Magnesium Level 2.1 Total Bilirubin 0.7 Direct Bilirubin 0.00 Indirect Bilirubin 0.7 Aspartate Amino Transf (AST/SGOT) 23 Alanine Aminotransferase (ALT/SGPT) 40 Alkaline Phosphatase 51 Total Protein 6.3 Albumin 3.5 Globulin 2.80 Albumin/Globulin Ratio 1.25 Medications Medications Current Medications Dextrose/Sodium Chloride (D5-1/2ns) 1,000 ml @ 100 mls/hr Q10H IV Last administered on 10/12/17t 22:54; Admin Dose 100 MLS/HR; Start 10/11/17 at 11: 57 Ondansetron HCl (Zofran Tab) 4 mg Q6H PRN PO NAUSEA AND/OR VOMITING; Start at 12:00 Docusate Sodium (Colace) 100 mg Q12H PRN PO CONSTIPATION; Start 10/11/17 at 12 :00 Famotidine (Pepcid) 20 mg Q12 PO Last administered on 10/13/17t 10:12; Admin Dose 20 MG; Start 10/11/17 at 12:00 Acetaminophen (Tylenol Tab) 650 mg Q6H PRN PO PAIN AND OR ELEVATED TEMP; Start 10/12/17 at 16:30 MIKKI SONG Oct 13, 2017 10:25
--- NOTE | 2017-10-13 15:59 | CONS ---
Date/Time of Note Date/Time of Note DATE: 10/13/17 TIME: 15:55 Assessment/Plan Assessment/Plan Additional Assessment/Plan BRBPR Hx Mechanical MVR Preserved EF -Discussed with surgeon over the phone. Plan to start Coumadin today, if rectal bleeding continues to improve, plan to start IV heparin tomorrow with plan of therapeutic PTT but on the lower end. Consultation Date/Type/Reason Admit Date/Time Oct 11, 2017 at 13:55 Initial Consult Date 10/11/17 Type of Consultation: cv Referring Provider: MITESH ENGLE MD 24 HR Interval Summary Free Text/Dictation denies sob, palpitations, dizziness. Some BRB on tissue when wiping but improved Exam/Review of Systems Vital Signs Vitals Vital Signs Date Time Temp Pulse Resp B/P Pulse Ox O2 Delivery O2 Flow Rate FiO2 10/13/17 08:00 98.2 67 18 104/56 99 Room Air Intake and Output 10/12/17 10/12/17 10/13/17 15:00 23:00 07:00 Intake Total 700 ml 1000 ml 800 ml Output Total 1100 ml Balance 700 ml -100 ml 800 ml Exam Constitutional: alert, oriented, well developed Neck: supple Respiratory: other (course bs, no wheeze) Cardiovascular: other (mechanical click), regular rate and rhythm Gastrointestinal: bowel sounds, non-tender, soft Extremities: other (no edema) Results Result Diagram: 10/13/17 0602 10/13/17 0602 Results 24 hrs Laboratory Tests Test 10/13/17 06:02 White Blood Count 5.3 Red Blood Count 3.75 L Hemoglobin 11.3 L Hematocrit 32.5 L Mean Corpuscular Volume 86.7 Mean Corpuscular Hemoglobin 30.1 Mean Corpuscular Hemoglobin Concent 34.8 Red Cell Distribution Width 13.2 Platelet Count 239 Mean Platelet Volume 10.7 H Neutrophils % 40.7 Lymphocytes % 46.1 Monocytes % 8.3 Eosinophils % 4.1 Basophils % 0.4 Nucleated Red Blood Cells % 0.0 Neutrophils # 2.2 Lymphocytes # 2.5 Monocytes # 0.4 Eosinophils # 0.2 Basophils # 0.0 Nucleated Red Blood Cells # 0.0 Prothrombin Time 16.0 #H Prothrombin Time Ratio 1.3 INR International Normalized Ratio 1.27 Activated Partial Thromboplast Time 35.7 H Sodium Level 141 Potassium Level 3.8 Chloride Level 107 Carbon Dioxide Level 26 Anion Gap 12 Blood Urea Nitrogen 12 Creatinine 1.01 Glucose Level 99 Calcium Level 8.5 Phosphorus Level 4.3 Magnesium Level 2.1 Total Bilirubin 0.7 Direct Bilirubin 0.00 Indirect Bilirubin 0.7 Aspartate Amino Transf (AST/SGOT) 23 Alanine Aminotransferase (ALT/SGPT) 40 Alkaline Phosphatase 51 Total Protein 6.3 Albumin 3.5 Globulin 2.80 Albumin/Globulin Ratio 1.25 Medications Medications Current Medications Ondansetron HCl (Zofran Tab) 4 mg Q6H PRN PO NAUSEA AND/OR VOMITING; Start at 12:00 Docusate Sodium (Colace) 100 mg Q12H PRN PO CONSTIPATION; Start 10/11/17 at 12 :00 Famotidine (Pepcid) 20 mg Q12 PO Last administered on 10/13/17t 10:12; Admin Dose 20 MG; Start 10/11/17 at 12:00 Acetaminophen (Tylenol Tab) 650 mg Q6H PRN PO PAIN AND OR ELEVATED TEMP; Start 10/12/17 at 16:30 Ken Bui DO Oct 13, 2017 15:59
--- NOTE | 2017-10-13 16:47 | PN ---
Date/Time of Note Date/Time of Note DATE: 10/13/17 TIME: 16:34 Assessment/Plan Lines/Catheters IV Catheter Type (from [facility]): Peripheral IV Cor[facility] in Place (from [facility]): No Assessment/Plan Chief Complaint/Hosp Course 1. Rectal bleed: s/p fistulotomy (known rectal fistula) and hemorrhoidectomy: no overt bleed -continue to monitor -no emergent surgical intervention necessary at this time -may follow with primary surgeon 2. Rectal fistula: -continue local care -as above 3. Mechanical mitral valve: -anticoagulate when acute bleed has stopped- per primary surgeon may be resumed by 10/16 4. Normocytic normochromic anemia: -monitor -transfuse as needed 5. Obesity: bmi 34 -diet and exercise optimization -encourage weight loss Thank you. Patient seen and examined in collaboration with Dr. Jacob Sandra. Problems: Subjective 24 Hr Interval Summary Feels well. Reports improved bleeding. Slight bleeding noted from nicole-rectal fistula. No fevers, chills, sob, congested cough, cp, palpitations, hodge, dizziness, n/v/d/dysuria. Exam/Review of Systems Vital Signs Vitals Vital Signs Date Time Temp Pulse Resp B/P Pulse Ox O2 Delivery O2 Flow Rate FiO2 10/13/17 08:00 98.2 67 18 104/56 99 Room Air Intake and Output 10/12/17 10/12/17 10/13/17 15:00 23:00 07:00 Intake Total 700 ml 1000 ml 800 ml Output Total 1100 ml Balance 700 ml -100 ml 800 ml Exam Constitutional: alert, oriented, well developed Psych: nl mood/affect, no complaints Head: atraumatic, normocephalic Eyes: nl lids, nl sclera ENMT: mucosa pink and moist, nl nasal mucosa & septum Neck: non-tender, supple Respiratory: clear to auscultation Cardiovascular: nl pulses, regular rate and rhythm Gastrointestinal: non-tender, other (rotund), soft Musculoskeletal: nl extremities to inspection, nl gait and stance Extremities: normal pulses Neurological: nl mental status, nl speech, nl strength Skin: nl turgor, other (rectal fistula min drainage, min blood) Lymph: nl lymph nodes Results Result Diagram: 10/13/1702 10/13/1702 CLARISA PERSON NP Oct 13, 2017 16:47
[2017-10-13] MEDS ORDERED: WARFARIN 7.5 MG TAB PO ONE (17:30)
[2017-10-13 20:16] VITALS: BP 104/71; RESP 18
[2017-10-14 02:18] VITALS: BP 109/66; RESP 18
[2017-10-14 05:52] LABS: BASOPHILS % 0.7 % (0.0-2.0); EOSINOPHILS # 0.3 10^3/ul (0.0-0.5); EOSINOPHILS % 4.5 % (0.0-7.0); HEMATOCRIT 33.4 % (42.0-52.0); HEMOGLOBIN 11.5 g/dl (14.0-18.0); LYMPHOCYTES # 2.6 10^3/ul (0.8-2.9); LYMPHOCYTES % 42.7 % (15.0-51.0); MEAN CORPUSCULAR HEMOGLOBIN 29.9 pg (29.0-33.0); MEAN CORPUSCULAR HGB CONC 34.4 g/dl (32.0-37.0); MEAN PLATELET VOLUME 10.8 fl (7.4-10.4); MONOCYTE # 0.4 10^3/ul (0.3-0.9); NEUTROPHIL # 2.7 10^3/ul (1.6-7.5); NEUTROPHILS % 44.6 % (39.0-77.0); PLATELET COUNT 261 10^3/UL (140-415); RED BLOOD COUNT 3.84 10^6/ul (4.70-6.10); RED CELL DISTRIBUTION WIDTH 13.2 % (11.5-14.5)
[2017-10-14 06:08] LABS: INR 1.15; PROTIME 14.7 Sec (12.2-14.2); PT RATIO 1.1
[2017-10-14 06:09] LABS: PARTIAL THROMBOPLASTIN TIME 35.2 Sec (25.0-35.0)
[2017-10-14 06:20] LABS: PHOSPHORUS 4.3 mg/dl (2.5-4.9)
[2017-10-14 06:21] LABS: CALCIUM 8.9 mg/dl (8.4-10.2); CREATININE 1.02 mg/dl (0.61-1.24)
[2017-10-14 08:23] VITALS: BP 100/60; RESP 18
[2017-10-14] MEDS: FAMOTIDINE 20 MG TAB PO SCH ×2 (08:50→22:35)
--- NOTE | 2017-10-14 10:02 | CONS ---
Date/Time of Note Date/Time of Note DATE: 10/14/17 TIME: 10:00 Assessment/Plan Assessment/Plan Additional Assessment/Plan BRBPR with history of recent rectal surgery Hx Mechanical MVR Preserved ejection fraction -As mentioned in previous note, I did speak to patient's primary surgeon regarding patient with mechanical mitral valve. Given patient with no further bleeding, Coumadin was restarted yesterday and will plan of starting IV heparin today with goal of "lower end" of the therapeutic range. Consultation Date/Type/Reason Admit Date/Time Oct 11, 2017 at 13:55 Initial Consult Date 10/11/17 Type of Consultation: cv Referring Provider: MITESH ENGLE MD 24 HR Interval Summary Free Text/Dictation Patient denies any rectal bleeding or blood seen on tissue with wiping. Exam/Review of Systems Vital Signs Vitals Vital Signs Date Time Temp Pulse Resp B/P Pulse Ox O2 Delivery O2 Flow Rate FiO2 10/14/17 08:23 98.8 51 18 100/60 96 10/13/17 08:00 Room Air Intake and Output 10/13/17 10/13/17 10/14/17 15:00 23:00 07:00 Intake Total 400 ml 1380 ml 450 ml Output Total 1475 ml Balance 400 ml -95 ml 450 ml Exam No apparent distress Constitutional: alert, oriented Head: normocephalic Respiratory: clear to auscultation, normal air movement Cardiovascular: other (Mechanical click), regular rate and rhythm Gastrointestinal: bowel sounds, non-tender, soft Extremities: other (No edema) Results Result Diagram: 10/14/17 0519 10/14/17 0519 Results 24 hrs Laboratory Tests Test 10/14/17 05:19 White Blood Count 6.0 Red Blood Count 3.84 L Hemoglobin 11.5 L Hematocrit 33.4 L Mean Corpuscular Volume 87.0 Mean Corpuscular Hemoglobin 29.9 Mean Corpuscular Hemoglobin Concent 34.4 Red Cell Distribution Width 13.2 Platelet Count 261 Mean Platelet Volume 10.8 H Neutrophils % 44.6 Lymphocytes % 42.7 Monocytes % 7.0 Eosinophils % 4.5 Basophils % 0.7 Nucleated Red Blood Cells % 0.0 Neutrophils # 2.7 Lymphocytes # 2.6 Monocytes # 0.4 Eosinophils # 0.3 Basophils # 0.0 Nucleated Red Blood Cells # 0.0 Prothrombin Time 14.7 H Prothrombin Time Ratio 1.1 INR International Normalized Ratio 1.15 Activated Partial Thromboplast Time 35.2 H Sodium Level 142 Potassium Level 4.0 Chloride Level 108 Carbon Dioxide Level 24 Anion Gap 14 Blood Urea Nitrogen 16 Creatinine 1.02 Glucose Level 91 Calcium Level 8.9 Phosphorus Level 4.3 Magnesium Level 2.0 Medications Medications Current Medications Ondansetron HCl (Zofran Tab) 4 mg Q6H PRN PO NAUSEA AND/OR VOMITING; Start at 12:00 Docusate Sodium (Colace) 100 mg Q12H PRN PO CONSTIPATION; Start 10/11/17 at 12 :00 Famotidine (Pepcid) 20 mg Q12 PO Last administered on 10/14/17t 08:50; Admin Dose 20 MG; Start 10/11/17 at 12:00 Acetaminophen (Tylenol Tab) 650 mg Q6H PRN PO PAIN AND OR ELEVATED TEMP; Start 10/12/17 at 16:30 Warfarin Sodium (Coumadin) 6 mg DAILY@17 PO ; Start 10/14/17 at 17:00 Ken Bui DO Oct 14, 2017 10:02
[2017-10-14] MEDS ORDERED: HEPARIN 1000 UNITS/ML 10 ML INJ IV PRN (10:30)
--- NOTE | 2017-10-14 10:51 | PN ---
Date/Time of Note Date/Time of Note DATE: 10/14/17 TIME: 10:48 Assessment/Plan Lines/Catheters IV Catheter Type (from [facility]): Peripheral IV Corcoran in Place (from [facility]): No Assessment/Plan Chief Complaint/Hosp Course 1. Rectal bleed: s/p fistulotomy (known rectal fistula) and hemorrhoidectomy: no overt bleed -continue to monitor -no emergent surgical intervention necessary at this time -may follow with primary surgeon 2. Rectal fistula: -continue local care -as above 3. Mechanical mitral valve: -anticoagulate when acute bleed has stopped- per primary surgeon may be resumed by 10/16 4. Normocytic normochromic anemia: -monitor -transfuse as needed 5. Obesity: bmi 34 -diet and exercise optimization -encourage weight loss Thank you. Patient seen and examined in collaboration with Dr. Jacob Sandra. Problems: Subjective 24 Hr Interval Summary Feels well. No acute bleed noted. No rectal pain. h/h stable. No fevers, chills , sob, congested cough, cp, palpitations, hodge, dizziness, n/v/d/dysuria. Exam/Review of Systems Vital Signs Vitals Vital Signs Date Time Temp Pulse Resp B/P Pulse Ox O2 Delivery O2 Flow Rate FiO2 10/14/17 08:23 98.8 51 18 100/60 96 10/13/17 08:00 Room Air Intake and Output 10/13/17 10/13/17 10/14/17 15:00 23:00 07:00 Intake Total 400 ml 1380 ml 450 ml Output Total 1475 ml Balance 400 ml -95 ml 450 ml Exam Free Text/Dictation Constitutional: alert, oriented, well developed Psych: nl mood/affect, no complaints Head: atraumatic, normocephalic Eyes: nl lids, nl sclera ENMT: mucosa pink and moist, nl nasal mucosa & septum Neck: non-tender, supple Respiratory: clear to auscultation Cardiovascular: nl pulses, regular rate and rhythm Gastrointestinal: non-tender, other (rotund), soft Musculoskeletal: nl extremities to inspection, nl gait and stance Extremities: normal pulses Neurological: nl mental status, nl speech, nl strength Skin: nl turgor, other (rectal fistula min drainage, no acute bleed) Lymph: nl lymph nodes Results Result Diagram: 10/14/17 0519 10/14/17 0519 CLARISA PERSON NP Oct 14, 2017 10:51
[2017-10-14] MEDS: HEPARIN 25000 UNITS/250 ML 250 ML IV SCH ×2 (13:12→19:09)
--- NOTE | 2017-10-14 13:42 | PN ---
Date/Time of Note Date/Time of Note DATE: 10/14/17 TIME: 13:31 Assessment/Plan VTE Prophylaxis VTE Prophylaxis Intervention: SCD's Lines/Catheters IV Catheter Type (from [facility]): Peripheral IV Urinary Cath still in place: No Assessment/Plan Assessment/Plan 52 yo man with: 1. Rectal bleeding, status post and ano-rectal surgery 2 weeks ago, patient actually had a fistulotomy (he has had recurrent and rectal fistula with abscesses) and removal of 2 large external hemorrhoids on both sides of the fistula with the wounds left open to make sure that the fistula drains per Dr Hinton. Hemoglobin remains stable this morning and no episodes of major bleeding. Patient has resumed Coumadin yesterday and On heparin drip bridge as of today per Cardiology. Appreciate recommendations from Cardiology and General Surgery. 2. Mechanical Mitral valve, Ideally his INR should be between 2.5 and 3.5, Back on Coumadin and using Heparin gtt for bridging until INR therapeutic Appreciate assistance from cardiology. No FFP please Prophylaxis: SCDs for DVT prophylaxis and Pepcid for GI prophylaxis Disposition: Follow-up further inpatient surgical and cardiology recommendation tomorrow . Subjective 24 Hr Interval Summary Free Text/Dictation Patient doing well On Heparin gtt as of this AM Coumadin started yesterday. Exam/Review of Systems Vital Signs Vitals Vital Signs Date Time Temp Pulse Resp B/P Pulse Ox O2 Delivery O2 Flow Rate FiO2 10/14/17 08:23 98.8 51 18 100/60 96 10/13/17 08:00 Room Air Intake and Output 10/13/17 10/13/17 10/14/17 15:00 23:00 07:00 Intake Total 400 ml 1380 ml 450 ml Output Total 1475 ml Balance 400 ml -95 ml 450 ml Exam Constitutional: alert, oriented, well developed Respiratory: clear to auscultation, normal air movement Cardiovascular: nl pulses, regular rate and rhythm Gastrointestinal: non-tender, soft Musculoskeletal: nl extremities to inspection Extremities: normal pulses, other (no edema, clubbing or cyanosis ) Neurological: CARBON PAPER INTERLEAFER II-XII intact, nl mental status, nl speech, nl strength Results Result Diagram: 10/14/1719 10/14/17 0519 Results 24 hrs Laboratory Tests Test 10/14/17 05:19 White Blood Count 6.0 Red Blood Count 3.84 L Hemoglobin 11.5 L Hematocrit 33.4 L Mean Corpuscular Volume 87.0 Mean Corpuscular Hemoglobin 29.9 Mean Corpuscular Hemoglobin Concent 34.4 Red Cell Distribution Width 13.2 Platelet Count 261 Mean Platelet Volume 10.8 H Neutrophils % 44.6 Lymphocytes % 42.7 Monocytes % 7.0 Eosinophils % 4.5 Basophils % 0.7 Nucleated Red Blood Cells % 0.0 Neutrophils # 2.7 Lymphocytes # 2.6 Monocytes # 0.4 Eosinophils # 0.3 Basophils # 0.0 Nucleated Red Blood Cells # 0.0 Prothrombin Time 14.7 H Prothrombin Time Ratio 1.1 INR International Normalized Ratio 1.15 Activated Partial Thromboplast Time 35.2 H Sodium Level 142 Potassium Level 4.0 Chloride Level 108 Carbon Dioxide Level 24 Anion Gap 14 Blood Urea Nitrogen 16 Creatinine 1.02 Glucose Level 91 Calcium Level 8.9 Phosphorus Level 4.3 Magnesium Level 2.0 Medications Medications Current Medications Ondansetron HCl (Zofran Tab) 4 mg Q6H PRN PO NAUSEA AND/OR VOMITING; Start at 12:00 Docusate Sodium (Colace) 100 mg Q12H PRN PO CONSTIPATION; Start 10/11/17 at 12 :00 Famotidine (Pepcid) 20 mg Q12 PO Last administered on 10/14/17t 08:50; Admin Dose 20 MG; Start 10/11/17 at 12:00 Acetaminophen (Tylenol Tab) 650 mg Q6H PRN PO PAIN AND OR ELEVATED TEMP; Start 10/12/17 at 16:30 Warfarin Sodium (Coumadin) 6 mg DAILY@17 PO ; Start 10/14/17 at 17:00 MIKKI SONG Oct 14, 2017 13:41
[2017-10-14 16:42] VITALS: BP 112/70; RESP 18
[2017-10-14] MEDS: WARFARIN 3 MG TAB PO SCH (17:27)
[2017-10-14 18:29] LABS: INR 1.1; PROTIME 14.2 Sec (12.2-14.2); PT RATIO 1.1
[2017-10-14 18:38] LABS: PARTIAL THROMBOPLASTIN TIME 51.9 Sec (25.0-35.0)
[2017-10-14 20:00] VITALS: BP 111/74; RESP 17
[2017-10-15 02:00] VITALS: BP 96/52; RESP 18
[2017-10-15 06:51] LABS: WHITE BLOOD COUNT 6.2 10^3/ul (4.8-10.8)
[2017-10-15 06:52] LABS: BASOPHIL # 0.1 10^3/ul (0.0-0.1); BASOPHILS % 0.8 % (0.0-2.0); EOSINOPHILS # 0.3 10^3/ul (0.0-0.5); EOSINOPHILS % 4.2 % (0.0-7.0); HEMATOCRIT 33.2 % (42.0-52.0); HEMOGLOBIN 11.3 g/dl (14.0-18.0); LYMPHOCYTES # 2.7 10^3/ul (0.8-2.9); LYMPHOCYTES % 43.2 % (15.0-51.0); MEAN CORPUSCULAR HEMOGLOBIN 29.9 pg (29.0-33.0); MEAN CORPUSCULAR VOLUME 87.8 fl (82.0-101.0); MONOCYTE # 0.5 10^3/ul (0.3-0.9); MONOCYTES % 7.4 % (0.0-11.0); NEUTROPHIL # 2.7 10^3/ul (1.6-7.5); NEUTROPHILS % 43.9 % (39.0-77.0); PLATELET COUNT 258 10^3/UL (140-415); RED BLOOD COUNT 3.78 10^6/ul (4.70-6.10); RED CELL DISTRIBUTION WIDTH 13.7 % (11.5-14.5)
[2017-10-15 07:07] LABS: INR 1.15; PROTIME 14.7 Sec (12.2-14.2); PT RATIO 1.1
[2017-10-15 07:25] VITALS: BP 113/71; RESP 16
[2017-10-15] MEDS: FAMOTIDINE 20 MG TAB PO SCH ×2 (08:29→21:59)
[2017-10-15] MEDS: HEPARIN 25000 UNITS/250 ML 250 ML IV SCH (08:38)
[2017-10-15 14:00] VITALS: BP 107/67; RESP 16
--- NOTE | 2017-10-15 14:32 | PN ---
Date/Time of Note Date/Time of Note DATE: 10/15/17 TIME: 14:32 Assessment/Plan VTE Prophylaxis VTE Prophylaxis Intervention: SCD's Lines/Catheters IV [facility] [place] Urinary Cath still in place: No Assessment/Plan Chief Complaint/Hosp Course 1. Rectal bleeding, status post and ano-rectal surgery 2 weeks ago, patient actually had a fistulotomy (he has had recurrent and rectal fistula with abscesses) and removal of 2 large external hemorrhoids on both sides of the fistula with the wounds left open to make sure that the fistula drains per Dr Hinton. Hemoglobin remains stable this morning and no episodes of major bleeding. Patient has resumed Coumadin and On heparin drip bridge as of today per Cardiology. Appreciate recommendations from Cardiology and General Surgery. 2. Mechanical Mitral valve, Ideally his INR should be between 2.5 and 3.5, Back on Coumadin and using Heparin gtt for bridging until INR therapeutic Appreciate assistance from cardiology. No FFP please Prophylaxis: SCDs for DVT prophylaxis and Pepcid for GI prophylaxis Disposition: Follow-up further inpatient surgical and cardiology recommendation tomorrow . Problems: Subjective 24 Hr Interval Summary Constitutional: no complaints Exam/Review of Systems Vital Signs Vitals Vital Signs Date Time Temp Pulse Resp B/P Pulse Ox O2 Delivery O2 Flow Rate FiO2 10/15/17 14:00 98.8 54 16 107/67 96 10/13/17 08:00 Room Air Intake and Output 10/14/17 10/14/17 10/15/17 15:00 23:00 07:00 Intake Total 240 ml Balance 240 ml Exam Constitutional: alert, oriented Respiratory: clear to auscultation Cardiovascular: regular rate and rhythm Gastrointestinal: soft, No distended Musculoskeletal: nl extremities to inspection Results Result Diagram: 10/15/17 0613 10/14/17 0519 Results 24 hrs Laboratory Tests Test 10/14/17 18:00 10/15/17 06:13 10/15/17 08:17 Prothrombin Time 14.2 14.7 H Prothrombin Time Ratio 1.1 1.1 INR International Normalized Ratio 1.10 1.15 Activated Partial Thromboplast Time 51.9 H 70.8 *H White Blood Count 6.2 Red Blood Count 3.78 L Hemoglobin 11.3 L Hematocrit 33.2 L Mean Corpuscular Volume 87.8 Mean Corpuscular Hemoglobin 29.9 Mean Corpuscular Hemoglobin Concent 34.0 Red Cell Distribution Width 13.7 Platelet Count 258 Mean Platelet Volume 11.0 H Neutrophils % 43.9 Lymphocytes % 43.2 Monocytes % 7.4 Eosinophils % 4.2 Basophils % 0.8 Nucleated Red Blood Cells % 0.0 Neutrophils # 2.7 Lymphocytes # 2.7 Monocytes # 0.5 Eosinophils # 0.3 Basophils # 0.1 Nucleated Red Blood Cells # 0.0 Medications Medications Current Medications Ondansetron HCl (Zofran Tab) 4 mg Q6H PRN PO NAUSEA AND/OR VOMITING; Start at 12:00 Docusate Sodium (Colace) 100 mg Q12H PRN PO CONSTIPATION; Start 10/11/17 at 12 :00 Famotidine (Pepcid) 20 mg Q12 PO Last administered on 10/15/17 08:29; Admin Dose 20 MG; Start 10/11/17 at 12:00 Acetaminophen (Tylenol Tab) 650 mg Q6H PRN PO PAIN AND OR ELEVATED TEMP; Start 10/12/17 at 16:30 Warfarin Sodium (Coumadin) 6 mg DAILY@17 PO Last administered on 10/14/17 17: 27; Admin Dose 6 MG; Start 10/14/17 at 17:00 DALE NIETO Oct 15, 2017 14:32
--- NOTE | 2017-10-15 14:51 | CONS ---
Date/Time of Note Date/Time of Note DATE: 10/15/17 TIME: 14:48 Assessment/Plan Assessment/Plan Additional Assessment/Plan BRBPR with history of recent rectal surgery Hx Mechanical MVR Preserved ejection fraction -As mentioned in previous note, I did speak to patient's primary surgeon regarding patient with mechanical mitral valve. Given patient with no further bleeding, Coumadin was restarted IV heparin with goal of "lower end" of the therapeutic range. Patient with bowel movements with no blood and no further rectal bleeding. Patient's home dose of Coumadin 6 mg daily. If INR still remains in current range, would consider increasing dose. Consultation Date/Type/Reason Admit Date/Time Oct 11, 2017 at 13:55 Initial Consult Date 10/11/17 Type of Consultation: cv Referring Provider: MITESH ENGLE MD 24 HR Interval Summary Free Text/Dictation Patient with bowel movement today with no blood seen. Denies dizziness, shortness of breath or palpitations Exam/Review of Systems Vital Signs Vitals Vital Signs Date Time Temp Pulse Resp B/P Pulse Ox O2 Delivery O2 Flow Rate FiO2 10/15/17 14:00 98.8 54 16 107/67 96 10/13/17 08:00 Room Air Intake and Output 10/14/17 10/14/17 10/15/17 15:00 23:00 07:00 Intake Total 240 ml Balance 240 ml Exam nad Constitutional: alert, oriented Head: normocephalic Respiratory: clear to auscultation, normal air movement Cardiovascular: regular rate and rhythm, systolic murmur (Mechanical click, S1- S2 heard) Gastrointestinal: bowel sounds, non-tender, soft Extremities: other (No edema) Results Result Diagram: 10/15/17 0613 10/14/17 0519 Results 24 hrs Laboratory Tests Test 10/14/17 18:00 10/15/17 06:13 10/15/17 08:17 Prothrombin Time 14.2 14.7 H Prothrombin Time Ratio 1.1 1.1 INR International Normalized Ratio 1.10 1.15 Activated Partial Thromboplast Time 51.9 H 70.8 *H White Blood Count 6.2 Red Blood Count 3.78 L Hemoglobin 11.3 L Hematocrit 33.2 L Mean Corpuscular Volume 87.8 Mean Corpuscular Hemoglobin 29.9 Mean Corpuscular Hemoglobin Concent 34.0 Red Cell Distribution Width 13.7 Platelet Count 258 Mean Platelet Volume 11.0 H Neutrophils % 43.9 Lymphocytes % 43.2 Monocytes % 7.4 Eosinophils % 4.2 Basophils % 0.8 Nucleated Red Blood Cells % 0.0 Neutrophils # 2.7 Lymphocytes # 2.7 Monocytes # 0.5 Eosinophils # 0.3 Basophils # 0.1 Nucleated Red Blood Cells # 0.0 Medications Medications Current Medications Ondansetron HCl (Zofran Tab) 4 mg Q6H PRN PO NAUSEA AND/OR VOMITING; Start at 12:00 Docusate Sodium (Colace) 100 mg Q12H PRN PO CONSTIPATION; Start 10/11/17 at 12 :00 Famotidine (Pepcid) 20 mg Q12 PO Last administered on 10/15/17 08:29; Admin Dose 20 MG; Start 10/11/17 at 12:00 Acetaminophen (Tylenol Tab) 650 mg Q6H PRN PO PAIN AND OR ELEVATED TEMP; Start 10/12/17 at 16:30 Warfarin Sodium (Coumadin) 6 mg DAILY@17 PO Last administered on 10/14/17 17: 27; Admin Dose 6 MG; Start 10/14/17 at 17:00 Ken Bui DO Oct 15, 2017 14:51
[2017-10-15] MEDS: WARFARIN 3 MG TAB PO SCH (17:08)
[2017-10-15 20:25] VITALS: BP 138/60; RESP 16
--- NOTE | 2017-10-15 23:56 | PN ---
Date/Time of Note Date/Time of Note DATE: 10/15/17 TIME: 23:52 Assessment/Plan Lines/Catheters IV Catheter Type (from [facility]): Saline Lock [place] in Place (from [facility]): No Assessment/Plan Chief Complaint/Hosp Course 1. Rectal bleed: s/p fistulotomy (known rectal fistula) and hemorrhoidectomy: no further bleed. Coumadin and Heparin started. -continue to monitor -may follow with primary surgeon 2. Rectal fistula s/p fistulotomy -continue local care 3. Mechanical mitral valve: -anticoagulate per cards and primary surgeon 4. Normocytic normochromic anemia with blood loss -monitor -transfuse as needed 5. Obesity: bmi 34 -diet and exercise optimization -encourage weight loss Thank you Problems: Subjective 24 Hr Interval Summary Feels well. No acute bleed noted. No rectal pain. h/h stable. No fevers, chills , sob, congested cough, cp, palpitations, hodge, dizziness, n/v/d/dysuria. Exam/Review of Systems Vital Signs Vitals Vital Signs Date Time Temp Pulse Resp B/P Pulse Ox O2 Delivery O2 Flow Rate FiO2 10/15/17 20:25 98.3 56 16 138/60 96 10/13/17 08:00 Room Air Intake and Output 10/14/17 10/14/17 10/15/17 15:00 23:00 07:00 Intake Total 240 ml Balance 240 ml Exam Free Text/Dictation Constitutional: alert, oriented, well developed Psych: nl mood/affect, no complaints Head: atraumatic, normocephalic Eyes: nl lids, nl sclera ENMT: mucosa pink and moist, nl nasal mucosa & septum Neck: non-tender, supple Respiratory: clear to auscultation Cardiovascular: nl pulses, regular rate and rhythm Gastrointestinal: non-tender, other (rotund), soft Musculoskeletal: nl extremities to inspection, nl gait and stance Extremities: normal pulses Neurological: nl mental status, nl speech, nl strength Skin: nl turgor, other (rectal fistula min drainage, no acute bleed) Lymph: nl lymph nodes Results Result Diagram: 10/15/17 0613 10/14/17 0519 MONTY IRVIN MD Oct 15, 2017 23:56
[2017-10-16 02:14] VITALS: BP 94/64; RESP 18
[2017-10-16 08:00] VITALS: BP 111/73; RESP 16
[2017-10-16 08:01] LABS: INR 1.25; PROTIME 15.8 Sec (12.2-14.2); PT RATIO 1.2
[2017-10-16] MEDS: FAMOTIDINE 20 MG TAB PO SCH ×2 (08:41→20:33)
[2017-10-16] MEDS: HEPARIN 25000 UNITS/250 ML 250 ML IV SCH ×2 (09:36→17:48)
--- NOTE | 2017-10-16 13:03 | CONS ---
Date/Time of Note Date/Time of Note DATE: 10/16/17 TIME: 13:01 Assessment/Plan Assessment/Plan Additional Assessment/Plan BRBPR with history of recent rectal surgery Hx Mechanical MVR Preserved ejection fraction -As mentioned in previous note, I did speak to patient's primary surgeon regarding patient with mechanical mitral valve. Given patient with no further bleeding, Coumadin was restarted IV heparin with goal of "lower end" of the therapeutic range. Patient with bowel movements with no blood and no further rectal bleeding. Patient's home dose of Coumadin 6 mg daily. Patient was given vitamin K earlier this week and INR with minimal rise, would give extra dose of Coumadin today. Could consider bridging with Lovenox from this point forward with 1 mg/kg twice daily given no further rectal bleeding and continue Coumadin with goal of INR between 2.5 and 3.5. Consultation Date/Type/Reason Admit Date/Time Oct 11, 2017 at 13:55 Initial Consult Date 10/11/17 Type of Consultation: cv Referring Provider: MITESH ENGLE MD 24 HR Interval Summary Free Text/Dictation Denies any blood in stool or rectal bleeding. Denies shortness of breath or dizziness Exam/Review of Systems Vital Signs Vitals Vital Signs Date Time Temp Pulse Resp B/P Pulse Ox O2 Delivery O2 Flow Rate FiO2 10/16/17 02:14 97.6 82 18 94/64 98 10/13/17 08:00 Room Air Intake and Output 10/15/17 10/15/17 10/16/17 14:59 22:59 06:59 Intake Total 42 ml 1162 ml 630 ml Output Total 900 ml 1700 ml Balance 42 ml 262 ml -1070 ml Exam No apparent distress Constitutional: alert, oriented Head: normocephalic Respiratory: other (Coarse breath sounds bilaterally, no wheezing) Cardiovascular: other (S1-S2 heard with mechanical click), regular rate and rhythm Gastrointestinal: bowel sounds, non-tender, soft Extremities: other (No significant edema) Results Result Diagram: 10/15/17 0613 10/14/17 0519 Results 24 hrs Laboratory Tests Test 10/15/17 15:06 10/15/17 22:44 10/16/17 06:33 10/16/17 07:14 Activated Partial Thromboplast Time 66.6 H 71.3 *H Lab Scanned Report BLOOD TRANSFUSION Prothrombin Time 15.8 H Prothrombin Time Ratio 1.2 INR International Normalized Ratio 1.25 Test 10/16/17 07:15 Activated Partial Thromboplast Time 79.2 *H Medications Medications Current Medications Ondansetron HCl (Zofran Tab) 4 mg Q6H PRN PO NAUSEA AND/OR VOMITING; Start at 12:00 Docusate Sodium (Colace) 100 mg Q12H PRN PO CONSTIPATION; Start 10/11/17 at 12 :00 Famotidine (Pepcid) 20 mg Q12 PO Last administered on 10/16/17 08:41; Admin Dose 20 MG; Start 10/11/17 at 12:00 Acetaminophen (Tylenol Tab) 650 mg Q6H PRN PO PAIN AND OR ELEVATED TEMP; Start 10/12/17 at 16:30 Warfarin Sodium (Coumadin) 6 mg DAILY@17 PO Last administered on 10/15/17 17: 08; Admin Dose 6 MG; Start 10/14/17 at 17:00 Ken Bui DO Oct 16, 2017 13:03
[2017-10-16] MEDS ORDERED: WARFARIN 3 MG TAB PO ONE (13:30)
--- NOTE | 2017-10-16 13:55 | PN ---
Date/Time of Note Date/Time of Note DATE: 10/16/17 TIME: 13:55 Assessment/Plan VTE Prophylaxis VTE Prophylaxis Intervention: SCD's Lines/Catheters IV [facility]from [facility]): Peripheral IV Urinary Cath still in place: No Assessment/Plan Chief Complaint/Hosp Course 1. Rectal bleeding, status post and ano-rectal surgery 2 weeks ago, patient actually had a fistulotomy (he has had recurrent and rectal fistula with abscesses) and removal of 2 large external hemorrhoids on both sides of the fistula with the wounds left open to make sure that the fistula drains per Dr Hinton. Hemoglobin remains stable this morning and no episodes of major bleeding. Patient has resumed Coumadin and On heparin drip bridge as of today per Cardiology. Appreciate recommendations from Cardiology and General Surgery. 2. Mechanical Mitral valve, Ideally his INR should be between 2.5 and 3.5, Back on Coumadin and using Heparin gtt for bridging until INR therapeutic Appreciate assistance from cardiology. No FFP please Prophylaxis: SCDs for DVT prophylaxis and Pepcid for GI prophylaxis Disposition: Follow-up further inpatient surgical and cardiology recommendation tomorrow . Problems: Subjective 24 Hr Interval Summary Constitutional: no complaints Exam/Review of Systems Vital Signs Vitals Vital Signs Date Time Temp Pulse Resp B/P Pulse Ox O2 Delivery O2 Flow Rate FiO2 10/16/17 08:00 97.6 53 16 111/73 95 10/13/17 08:00 Room Air Intake and Output 10/15/17 10/15/17 10/16/17 15:00 23:00 07:00 Intake Total 42 ml 1162 ml 630 ml Output Total 900 ml 1700 ml Balance 42 ml 262 ml -1070 ml Exam Constitutional: alert, oriented Respiratory: clear to auscultation Cardiovascular: regular rate and rhythm Gastrointestinal: soft, No distended Musculoskeletal: nl extremities to inspection Results Result Diagram: 10/15/17 0613 10/14/17 0519 Results 24 hrs Laboratory Tests Test 10/15/17 15:06 10/15/17 22:44 10/16/17 06:33 10/16/17 07:14 Activated Partial Thromboplast Time 66.6 H 71.3 *H Lab Scanned Report BLOOD TRANSFUSION Prothrombin Time 15.8 H Prothrombin Time Ratio 1.2 INR International Normalized Ratio 1.25 Test 10/16/17 07:15 Activated Partial Thromboplast Time 79.2 *H Medications Medications Current Medications Ondansetron HCl (Zofran Tab) 4 mg Q6H PRN PO NAUSEA AND/OR VOMITING; Start at 12:00 Docusate Sodium (Colace) 100 mg Q12H PRN PO CONSTIPATION; Start 10/11/17 at 12 :00 Famotidine (Pepcid) 20 mg Q12 PO Last administered on 10/16/17 08:41; Admin Dose 20 MG; Start 10/11/17 at 12:00 Acetaminophen (Tylenol Tab) 650 mg Q6H PRN PO PAIN AND OR ELEVATED TEMP; Start 10/12/17 at 16:30 Warfarin Sodium (Coumadin) 6 mg DAILY@17 PO Last administered on 10/15/17 17: 08; Admin Dose 6 MG; Start 10/14/17 at 17:00 DALE NIETO Oct 16, 2017 13:55
[2017-10-16 14:00] VITALS: BP 101/66; RESP 18
[2017-10-16] MEDS: WARFARIN 3 MG TAB PO SCH (16:30)
[2017-10-16 20:00] VITALS: BP 109/65; RESP 20
[2017-10-17 02:00] VITALS: BP 94/58; RESP 19
[2017-10-17 06:46] LABS: INR 1.42; PROTIME 17.4 Sec (12.2-14.2); PT RATIO 1.4
[2017-10-17] MEDS: FAMOTIDINE 20 MG TAB PO SCH (08:12)
--- NOTE | 2017-10-17 08:41 | PN ---
Date/Time of Note Date/Time of Note DATE: 10/17/17 TIME: 08:39 Assessment/Plan VTE Prophylaxis VTE Prophylaxis Intervention: SCD's Lines/Catheters IV Catheter Type (from [facility]): Peripheral IV Urinary Cath still in place: No Assessment/Plan Assessment/Plan BRBPR with history of recent rectal surgery Hx Mechanical MVR Preserved ejection fraction - Given patient with no further bleeding, Coumadin was restarted IV heparin with goal of "lower end" of the therapeutic range. Patient with bowel movements with no blood and no further rectal bleeding. Patient's home dose of Coumadin 6 mg daily. Patient was given vitamin K earlier this week Could consider bridging with Lovenox from this point forward with 1 mg/kg twice daily given no further rectal bleeding and continue Coumadin with goal of INR between 2.5 and 3.5. -Possible home lovenox/coumadin wiht daily INR checks until INR therapeutic Subjective 24 Hr Interval Summary Free Text/Dictation The patietn with no complaints Exam/Review of Systems Vital Signs Vitals Vital Signs Date Time Temp Pulse Resp B/P Pulse Ox O2 Delivery O2 Flow Rate FiO2 10/17/17 02:00 98.1 54 19 94/58 99 10/13/17 08:00 Room Air Intake and Output 10/16/17 10/16/17 10/17/17 14:59 22:59 06:59 Intake Total 40 ml 1272 ml 798.7 ml Output Total 1400 ml Balance 40 ml -128 ml 798.7 ml Results Result Diagram: 10/15/17 0613 10/14/17 0519 Results 24 hrs Laboratory Tests Test 10/16/17 15:49 10/17/17 00:07 10/17/17 05:32 Activated Partial Thromboplast Time 55.1 H 72.3 *H Prothrombin Time 17.4 H Prothrombin Time Ratio 1.4 INR International Normalized Ratio 1.42 Medications Medications Current Medications Ondansetron HCl (Zofran Tab) 4 mg Q6H PRN PO NAUSEA AND/OR VOMITING; Start at 12:00 Docusate Sodium (Colace) 100 mg Q12H PRN PO CONSTIPATION; Start 10/11/17 at 12 :00 Famotidine (Pepcid) 20 mg Q12 PO Last administered on 10/17/17t 08:12; Admin Dose 20 MG; Start 10/11/17 at 12:00 Acetaminophen (Tylenol Tab) 650 mg Q6H PRN PO PAIN AND OR ELEVATED TEMP; Start 10/12/17 at 16:30 Warfarin Sodium (Coumadin) 6 mg DAILY@17 PO Last administered on 10/16/17t 16: 30; Admin Dose 6 MG; Start 10/14/17 at 17:00 SHADIA BRUMFIELD MD Oct 17, 2017 08:41
[2017-10-17 09:49] VITALS: BP 118/63; RESP 17
[2017-10-17] MEDS: HEPARIN 25000 UNITS/250 ML 250 ML IV SCH ×2 (10:04→11:22)
--- NOTE | 2017-10-17 11:48 | PDOCDIS ---
Discharge Instructions CONDITION Patient Condition: Good HOME CARE INSTRUCTIONS: Diet Instructions: Regular ACTIVITY: Activity Restrictions: No Restrictions FOLLOW UP/APPOINTMENTS Follow-up Plan F/U WITH YOUR PCP IN 1-2 WEEKS AND WITH HOME HEALTH DALE NIETO Oct 17, 2017 11:48
--- NOTE | 2017-10-17 13:11 | DS ---
Date/Time of Note Date/Time of Note DATE: 10/17/17 TIME: 13:06 Discharge Summary Admission/Discharge Info Admit Date/Time Oct 11, 2017 at 13:55 Discharge Date/Time October 17, 2017 Discharge Diagnosis 1. Rectal bleeding, status post and ano-rectal surgery 3 weeks ago, patient actually had a fistulotomy (he has had recurrent and rectal fistula with abscesses) and removal of 2 large external hemorrhoids on both sides of the fistula with the wounds left open to make sure that the fistula drains per Dr Hinton. Hemoglobin remains stable and no episodes of major bleeding Patient was resumed on Coumadin was being bridged with heparin, patient will continue home Lovenox and Coumadin Home health to check INR, will DC Lovenox when INR is therapeutic, patient understands this Appreciate recommendations from Cardiology and General Surgery. 2. Mechanical Mitral valve, Ideally his INR should be between 2.5 and 3.5, Back on Coumadin and was using Heparin gtt for bridging until INR therapeutic, will be using Lovenox at home until INR is therapeutic Appreciate assistance from cardiology. Patient Condition: Good Hospital Course Patient is a 52-year-old patient of Dr. Pasha Weiss with a history of a mechanical mitral valve who presented for rectal bleeding two weeks (09/30/17) after hemorrhoidectomy at the [facility] by Dr. Dinesh Nielsen. He takes Lovenox and Coumadin because of the mechanical valve, and is followed for cardiology by Dr. Durán. Patient's anticoagulants were held and rectal bleeding did resolve. Of note patient was seen by surgery as well as cardiology. Patient was restarted on Coumadin and heparin was being used for bridging. Patient was felt to be stable for DC back to home with Lovenox to bridge, this was discussed with cardiology and patient and patient was agreeable to go back home we will continue his Coumadin and continue his home Lovenox, patient was arranged for home health for INR checks and he understood that he will be stopping Lovenox once his INR is therapeutic. On the day of discharge patient's vitals, labs and physical exam stable he had no acute complaints and questions were answered. Home Meds Reported Medications Enoxaparin Sodium (Enoxaparin Sodium) 100 Mg/1 Ml Syringe, 100 MG SC Q12, SYR 10/11/17 Warfarin Sodium* (Warfarin Sodium*) 6 Mg Tablet, 6 MG PO DAILY, TAB 10/11/17 Discontinued Reported Medications Fenofibrate, Micronized* (Fenofibrate*) 160 Mg Tablet, 160 MG PO DAILY, #90 06/10/16 Docusate Sodium* (Docusate Sodium*) 100 Mg Capsule, 100 MG PO BID, #60 CAP 06/10/16 Discontinued Scripts Lactobacillus Acidophilus* (Lactinex*) 1 Tab Chew, 1 TAB PO TID for 14 Days, TAB Prov:MIKKI SONG 06/14/16 Cephalexin* (Cephalexin*) 500 Mg Capsule, 500 MG PO Q6 for 8 Days, #28 CAP Prov:MIKKI SONG 06/14/16 Levofloxacin* (Levofloxacin*) 750 Mg Tablet, 750 MG PO DAILY for 8 Days, TAB Prov:MIKKI SONG 06/14/16 Warfarin Sodium* (Warfarin Sodium*) 4 Mg Tablet, 5 MG PO DAILY for 30 Days, TAB Prov:MIKKI SONG 06/14/16 Acetaminophen* (Tylenol*) 325 Mg Tablet, 650 MG PO Q4H Y for pain/fever, #30 TAB OTC Prov:MIKKI SONG 06/01/16 Metoprolol Tartrate* (Lopressor*) 25 Mg Tab, 25 MG PO BID for 30 Days, TAB 3 Refills Prov:MIKKI SONG 06/29/15 Follow-up Plan F/U WITH YOUR PCP IN 1-2 WEEKS AND WITH HOME HEALTH Primary Care Provider Pasha Weiss MD Time spent on discharge: > 30 minutes DALE NIETO Oct 17, 2017 13:11
[2017-10-17 16:28] VITALS: BP 107/68; RESP 18
[2017-10-17] MEDS: WARFARIN 3 MG TAB PO SCH (16:30)
--- NOTE | 2017-10-17 18:04 | PN ---
Date/Time of Note Date/Time of Note DATE: 10/16/17 TIME: 18:02 Assessment/Plan Lines/Catheters IV Catheter Type (from [facility]): Peripheral IV Corcoran in Place (from [facility]): No Assessment/Plan Chief Complaint/Hosp Course 1. Rectal bleed: s/p fistulotomy (known rectal fistula) and hemorrhoidectomy: no further bleed. Coumadin and Heparin started and h/h stable -may follow with primary surgeon 2. Rectal fistula s/p fistulotomy -continue local care 3. Mechanical mitral valve: -anticoagulate per cards and primary surgeon 4. Normocytic normochromic anemia with blood loss -monitor -transfuse as needed 5. Obesity: bmi 34 -diet and exercise optimization -encourage weight loss Thank you Late entry 10/16 Problems: Subjective 24 Hr Interval Summary No acute bleed noted. Min rectal pain. h/h stable. No fevers, chills, sob, congested cough, cp, palpitations, hodge, dizziness, n/v/d/dysuria. Exam/Review of Systems Vital Signs Vitals Vital Signs Date Time Temp Pulse Resp B/P Pulse Ox O2 Delivery O2 Flow Rate FiO2 10/17/17 16:28 98.0 58 18 107/68 97 10/13/17 08:00 Room Air Intake and Output 10/16/17 10/16/17 10/17/17 15:00 23:00 07:00 Intake Total 40 ml 1272 ml 798.7 ml Output Total 1400 ml Balance 40 ml -128 ml 798.7 ml Exam Free Text/Dictation Constitutional: alert, oriented, well developed Psych: nl mood/affect, no complaints Head: atraumatic, normocephalic Eyes: nl lids, nl sclera ENMT: mucosa pink and moist, nl nasal mucosa & septum Neck: non-tender, supple Respiratory: clear to auscultation Cardiovascular: nl pulses, regular rate and rhythm Gastrointestinal: non-tender, other (rotund), soft Musculoskeletal: nl extremities to inspection, nl gait and stance Extremities: normal pulses Neurological: nl mental status, nl speech, nl strength Skin: nl turgor, other (rectal fistula min drainage, no acute bleed) Lymph: nl lymph nodes Results Result Diagram: 10/15/17 0613 10/14/17 0519 MONTY IRVIN MD Oct 17, 2017 18:04
--- NOTE | 2017-10-17 18:05 | PN ---
Date/Time of Note Date/Time of Note DATE: 10/17/17 TIME: 18:04 Assessment/Plan Lines/Catheters IV Catheter Type (from [facility]): Peripheral IV Corcoran in Place (from [facility]): No Assessment/Plan Chief Complaint/Hosp Course 1. Rectal bleed: s/p fistulotomy (known rectal fistula) and hemorrhoidectomy: no further bleed. Coumadin and Heparin started and h/h stable -follow with primary surgeon 2. Rectal fistula s/p fistulotomy -continue local care 3. Mechanical mitral valve: -anticoagulate per cards and primary surgeon 4. Normocytic normochromic anemia with blood loss -monitor -transfuse as needed 5. Obesity: bmi 34 -diet and exercise optimization -encourage weight loss Thank you Problems: Subjective 24 Hr Interval Summary No acute bleed noted. Min rectal pain. h/h stable. No fevers, chills, sob, congested cough, cp, palpitations, hodge, dizziness, n/v/d/dysuria. Exam/Review of Systems Vital Signs Vitals Vital Signs Date Time Temp Pulse Resp B/P Pulse Ox O2 Delivery O2 Flow Rate FiO2 10/17/17 16:28 98.0 58 18 107/68 97 10/13/17 08:00 Room Air Intake and Output 10/16/17 10/16/17 10/17/17 15:00 23:00 07:00 Intake Total 40 ml 1272 ml 798.7 ml Output Total 1400 ml Balance 40 ml -128 ml 798.7 ml Exam Free Text/Dictation Constitutional: alert, oriented, well developed Psych: nl mood/affect, no complaints Head: atraumatic, normocephalic Eyes: nl lids, nl sclera ENMT: mucosa pink and moist, nl nasal mucosa & septum Neck: non-tender, supple Respiratory: clear to auscultation Cardiovascular: nl pulses, regular rate and rhythm Gastrointestinal: non-tender, other (rotund), soft Musculoskeletal: nl extremities to inspection, nl gait and stance Extremities: normal pulses Neurological: nl mental status, nl speech, nl strength Skin: nl turgor, other (rectal fistula min drainage, no acute bleed) Lymph: nl lymph nodes Results Result Diagram: 10/15/17 0613 10/14/17 0519 MONTY IRVIN MD Oct 17, 2017 18:05
== END 2017-10-17 19:30 | disposition home health service (06) | DRG 920 ==
LOC: FTE 06:54 → PP2 08:03 → OBSVTOIN 13:55
PROVIDERS: ADMIT Internal Medicine; ATTEND Internal Medicine
PROC: 30233K1 Transfusion of Nonautologous Frozen Plasma into Peripheral Vein, Percutaneous Approach (ICD-10-PCS; principal; 2017-10-11)
DX: K91.840 Postprocedural hemorrhage of a digestive system organ or structure following a digestive system procedure (principal); K62.5 Hemorrhage of anus and rectum; Z79.02 Long term (current) use of antithrombotics/antiplatelets; Z95.2 Presence of prosthetic heart valve; D50.0 Iron deficiency anemia secondary to blood loss (chronic); E66.9 Obesity, unspecified; Z68.32 Body mass index [BMI] 32.0-32.9, adult
CPT/HCPCS: 36415; 36430; 71010; 80048; 80053; 83690; 83735; 84100; 84484; 85025; 85610; 85730; 86850; 86900; 86901; 93005; 93306; 96372; 96374; 96375; G0378; J1644; J2270; J2405; J7042; P9059